=== PATIENT | female | born 1945 | race Caucasian/White ===

== ENCOUNTER → 2016-07-21 | Outpatient (CLI) | payer MEDICARE ==
[2016-07-21 16:33] LABS: Blood Urea Nitrogen 10 mg/dL (7-17); Non-African American GFR(MDRD) 58 (>60 ml/min/1.73 sqM)
--- NOTE | 2016-07-21 21:43 | CT ---
EXAMINATION TYPE: CT angio thoracic/abd aorta DATE OF EXAM: 07/21/2016 COMPARISON: 01/26/2015 HISTORY: Thoracic and abdominal aneurysm follow up. CT DLP: 1226.2 mGycm. Automated Exposure Control for Dose Reduction was Utilized. CONTRAST: CT scan of the thorax, abdomen and pelvis is performed with IV Contrast, patient injected with 80 mL of Visipaque 320. FINDINGS: There is apical scarring present bilaterally. There is emphysematous change throughout both lungs. Th ere is no significant axillary, internal mammary or hilar adenopathy. There is no pleural or pericard ial fluid. The heart is mildly enlarged. The ascending aorta is unremarkable. The proximal descending thoracic aorta is normal in caliber. The re is no evidence of dissection. There is a 4.3 cm area dilatation in the distal descending thoracic aorta. The remainder of the suprarenal abdominal aorta is unremarkable. There is an infrarenal abdominal aortic aneurysm with a maximal transverse dimension of 3.8 cm. This extends to but does not involve the iliac vessels. The gallbladder has been removed. Hypodensity within the left lobe of the liver measures less than 1 cm and too small to characterize. Spleen are normal. Both adrenal glands are normal. Both kidneys demonstrate function and are morphologically normal. The pancreas appears unremarkable. Bowel gas pattern nonspecific. Diverticulosis of the colon seen. 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 Findings s table. The bladder is not distended but is otherwise normal. Uterus and ovaries are not visualized. No free fluid and no free air is seen. Multilevel degenerative disc disease noted. Coronary artery calcification seen. Cardiomegaly is stabl e. IMPRESSION: 1. Stable descending thoracic aortic aneurysm measuring approximately 4.3 cm in greatest dimension. 2. Stable infrarenal abdominal aortic aneurysm extending to the aortic bifurcation measuring a tricia l dimension of 3.7 cm. 3. There is a 1 cm pleural-based nodule which is increased in size from the previous exam where it me asured 7 mm. Noted within the right upper lobe. Correlate clinically. Emphysematous change.
== END | disposition home or self-care (01) ==
LOC: RADCTMAIN 15:56
PROVIDERS: ATTEND Family Medicine
DX: I71.2 Thoracic aortic aneurysm, without rupture (principal); I71.4 Abdominal aortic aneurysm, without rupture; R91.1 Solitary pulmonary nodule; J43.9 Emphysema, unspecified
CPT/HCPCS: 82565; 84520; 75635; 71275; 36415; Q9967

== ENCOUNTER → 2016-10-01 | Outpatient (CLI) | payer MEDICARE ==
--- NOTE | 2016-10-02 12:25 | PE ---
EXAMINATION TYPE: PET CT fusion skull to thigh DATE OF EXAM: 10/01/2016 COMPARISON: CTA thorax and abdomen 07/21/2016 Prior PET/CT: None HISTORY: Solitary pulmonary nodule TECHNIQUE: Following the intravenous administration of 13.38 mCi of F-18 FDG, whole body images are performed from the skull base to the midthigh. Images are reviewed on the computer in the coronal, a xial, and sagittal planes. Reconstructed rotating images are created on independent workstation and reviewed on the computer. A localization and attenuation correction CT is performed in conjunction with the PET scan. DLP: 460.87 mGycm SCAN: Initial Blood glucose: 98 mg/dL Average Mediastinum SUV: 1.3 Average Liver SUV: 2.7 FINDINGS: NECK: No abnormal uptake THORAX: No abnormal uptake. The area of increased thickening along the posterior lateral right upper pleural margin from July 2016 has normal radiotracer uptake measuring 0.7 SUV value. PET image 81. ABDOMEN: No abnormal uptake PELVIS: No abnormal uptake OSSEOUS STRUCTURES: No abnormal uptake LOCALIZATION CT: The ascending thoracic aorta at the level of main pulmonary artery is 4.0 cm. The ma in pulmonary artery the bifurcation is 3.0 cm. There is mild fusiform prominence of the descending th oracic aorta. Vascular calcification is within the aorta. There is a mild prominence of the aorta wit h the AP diameter measuring 4.1 cm. This is somewhat larger than the previous measurement. Evaluation for enlarging aneurysm of the abdominal aorta is recommended. COMPARISON: The abdominal aortic aneurysm currently measures 4.1 cm which is enlarged from the previo us measurement of 07/21/2016 IMPRESSION: 1. No suspicious radiotracer accumulation within the enlarging right lung pleural nodule. Monitoring with sequential CT chest is recommended. 2. Enlarging abdominal aortic aneurysm currently measuring 4.1 cm compared to 3.7 cm previously. Eval uation for enlarging abdominal aortic aneurysm is recommended.
== END | disposition home or self-care (01) ==
LOC: RADPETMAIN 13:53
PROVIDERS: ATTEND Internal Medicine Critical Care Medicine
DX: I71.4 Abdominal aortic aneurysm, without rupture (principal); R91.1 Solitary pulmonary nodule
CPT/HCPCS: 78815; A9552

== ENCOUNTER 2016-10-03 15:31 | Emergency (ER) | payer MEDICARE ==
[2016-10-03 15:46] VITALS: BP 140/71; PULSE 72; RESP 18; TEMP 98.3
--- NOTE | 2016-10-03 16:22 | ED ---
General Adult HPI - General Chief complaint: Extremity Injury, Lower Stated complaint: Knee Pain Time Seen by Provider: 10/03/16 15:38 Source: patient, RN notes reviewed Mode of arrival: wheelchair Limitations: no limitations - History of Present Illness Initial comments: 71-year-old female presents to the emergency department with a chief complaint of right knee pain. Patient states that it does not to the results. Patient states she denies any injury that it's been swelling on and off since then. Patient states it hurts along the front of the knee. Patient states she went to her doctor's is not doing much for her so she thought she was here. Patient states she has any ambulate stiffness time we'll get better and was pending when she does that day. Patient denies any history of knee problems in the past patient denies any other concerns or complaints. Patient denies any recent fever, chills, shortness of breath, chest pain, back pain, abdominal pain, nausea vomiting, numbness or tingling, dysuria or hematuria, constipation or diarrhea, headaches or visual changes, or any other current symptoms. - Related Data Home Medications Medication Instructions Recorded Confirmed Aspirin [Adult Low Dose Aspirin EC] 81 mg PO QAM 04/22/15 04/22/15 Losartan Potassium 100 mg PO QAM 04/22/15 04/22/15 Multivitamins, Thera [Multivitamin] 1 tab PO QAM 04/22/15 04/22/15 Simvastatin [Zocor] 20 mg PO HS 04/22/15 04/22/15 amLODIPine [Norvasc] 5 mg PO HS 04/22/15 04/22/15 Allergies Allergy/AdvReac Type Severity Reaction Status Date / Time enalapril maleate Allergy facial Verified 10/03/16 15:39 [From Vasotec] edema enalaprilat dihydrate Allergy facial Verified 10/03/16 15:39 [From Vasotec] edema Review of Systems ROS Statement: Those systems with pertinent positive or pertinent negative responses have been documented in the HPI. ROS Other: All systems not noted in ROS Statement are negative. Past Medical History Past Medical History: Hyperlipidemia, Hypertension Additional Past Medical History / Comment(s): back pain, aaa, kidney disease History of Any Multi-Drug Resistant Organisms: None Reported Past Surgical History: Appendectomy, Cholecystectomy, Hysterectomy Past Psychological History: No Psychological Hx Reported Smoking Status: Current every day smoker Past Alcohol Use History: Daily Past Drug Use History: None Reported General Exam - General Exam Comments Initial Comments: General: The patient is awake and alert, in no distress, and does not appear acutely ill. Neck: The neck is supple, there is no tenderness. Cardiovascular: There is a regular rate and rhythm. No murmur, rub or gallop is appreciated. Respiratory: Lungs are clear to auscultation, respirations are non-labored, breath sounds are equal. No wheezes, stridor, rales, or rhonchi. Musculoskeletal:the patient Is a regular strain. Full range of motion of the right knee. Some anterior swelling noted. No tenderness of the right hip or right ankle. Neurological: CN II-XII intact, There are no obvious motor or sensory deficits. Coordination appears grossly intact. Speech is normal. Skin: Skin is warm and dry and no rashes or lesions are noted. Psychiatric: Normal mood and affect. Limitations: no limitations Course Vital Signs 10/03/16 15:39 Temperature 98.3 F Pulse Rate 72 Respiratory 18 Rate Blood Pressure 140/71 O2 Sat by Pulse 99 Oximetry Procedures - Orthopedic Splinting/Casting Injury #1 Side: right Lower Extremity Injury Location: knee Lower Extremity Immobilizer: Ludwig wrap Medical Decision Making - Medical Decision Making 71-year-old female presents for right knee sprain. This and we discussed care of the knee. We discussed return parameters discussed follow-up. We discussed all the patient's questions. She stated that she understood and she is given plan. All questions have been answered. She will be discharged at this time. - Radiology Data Radiology results: report reviewed, image reviewed Disposition Clinical Impression: Right knee sprain, Effusion, right knee Disposition: HOME SELF-CARE Condition: Stable Instructions: Knee Sprain (ED) Additional Instructions: Please use medication as discussed. Please follow up with family doctor if symptoms have not improved over the next two days. Please return to the emergency room if your symptoms increase or worsen or for any other concerns. Rest the area. Ice the area 20 min on 20 min off 4x a day. Compress the area with either the LUDWIG bandage or wearing the splint. Elevate the area above the heart whenever possible. Referrals: Alverto Chinchilla MD [Primary Care Provider] - 1-2 days Mp Daniels MD [STAFF PHYSICIAN] - 1-2 days Time of Disposition: 16:36
--- NOTE | 2016-10-03 16:35 | XR ---
EXAMINATION TYPE: XR knee complete RT DATE OF EXAM: 10/03/2016 COMPARISON: NONE HISTORY: Pain TECHNIQUE: Three-view right knee supplemented with a opposite lateral view FINDINGS: Joint spaces are preserved. No joint effusion is evident. Anterior superior patellar spur i s present. IMPRESSION: 1. No acute osseous abnormality. 2. Follow-up study can be performed 7-10 days from acute trauma for continued pain.
== END 2016-10-03 16:42 | disposition home or self-care (01) ==
LOC: EC 15:31
DX: S83.91XA Sprain of unspecified site of right knee, initial encounter (principal); M25.461 Effusion, right knee; E78.5 Hyperlipidemia, unspecified; I10 Essential (primary) hypertension; F17.200 Nicotine dependence, unspecified, uncomplicated; Z79.82 Long term (current) use of aspirin; Z79.899 Other long term (current) drug therapy; Z88.8 Allergy status to other drugs, medicaments and biological substances; Z87.39 Personal history of other diseases of the musculoskeletal system and connective tissue; X58.XXXA Exposure to other specified factors, initial encounter
CPT/HCPCS: 99283

== ENCOUNTER → 2017-04-04 | Outpatient (CLI) | payer MEDICARE ==
[2017-04-04 14:45] LABS: Blood Urea Nitrogen 13 mg/dL (7-17)
--- NOTE | 2017-04-04 15:59 | CT ---
EXAMINATION TYPE: CT chest w con DATE OF EXAM: 04/04/2017 COMPARISON: PET CT 10/01/2016, CT chest 07/21/2016, and CT chest 10/21/2013 HISTORY: 71-year-old female Solitary pulmonary nodule TECHNIQUE: Contiguous axial scanning of the chest after the administration of 80 mL of Visipaque 320. Coronal/sagittal reconstructions performed. CT DLP: 315.90mGycm. Automatic exposure control utilized for a dose reduction. FINDINGS: The heart is upper limits of normal in size. No pericardial effusion. Coronary vessel calcifications are present in remarkable for coronary artery disease. Aorta normal caliber with mild atherosclerotic arch calcifications. There is a direct takeoff of the left vertebral artery directly from the aortic arch. No thoracic lymphadenopathy by CT size criteria. There is fusiform dilatation of the distal thoracic aorta for caliber 3.8 cm, relatively stable obi red to 2013. Partially visualized AAA measuring at least 3.8 cm along the visualized portions. Double cysts anteri or left liver lobe measuring up to 1.2 cm redemonstrated. Evaluation of the lungs shows biapical pleural-parenchymal scarring, mild emphysematous change, and s ome strandy left basilar atelectasis. No consolidation or pleural effusion. There is a 1.1 cm groundglass subpleural pulmonary nodule lateral right mid lung axial image 25. This appears relatively stable as compared to 07/21/2016 but is larger with more soft tissue component as compared to 10/21/2013. Bones: Endplate spondylosis lower thoracic spine. No osseous destructive process. IMPRESSION: 1. Groundglass subpleural pulmonary nodule peripheral right midlung relatively stable from 07/21/2016 but larger with more soft tissue component as compared to 10/21/2013. As this could represent an area of adenomatous hyperplasia, annual surveillance is recommended. 2. COPD with mild emphysema. 3. Fusiform aneurysm lower descending thoracic aorta (3.8 cm) and partially visualized AAA which was more fully visualized on 10/01/2016.
== END | disposition home or self-care (01) ==
LOC: RADCTMAIN 13:58
PROVIDERS: ATTEND Internal Medicine Critical Care Medicine
DX: J43.9 Emphysema, unspecified (principal); R91.1 Solitary pulmonary nodule; I71.2 Thoracic aortic aneurysm, without rupture
CPT/HCPCS: 82565; 84520; 71260; Q9967

== ENCOUNTER → 2018-04-23 | Outpatient (CLI) | payer MEDICARE ==
[2018-04-23 16:26] LABS: HCT 36.9 % (34.0-46.0); HGB 12.2 gm/dL (11.4-16.0); MCH 29.1 pg (25.0-35.0); MCHC 33.1 g/dL (31.0-37.0); MCV 87.9 fL (80.0-100.0); Mean Platelet Volume 8.1; Platelet Count 253 k/uL (150-450); RDW 13.8 % (11.5-15.5); WBC 6.2 k/uL (3.8-10.6)
[2018-04-23 16:37] LABS: Prothrombin Time 10.3 sec (9.0-12.0)
[2018-04-24 02:27] LABS: Albumin 4.4 g/dL (3.80-4.90); Anion Gap 7.3 mmol/L (4.00-12.00); Calcium 9.1 mg/dL (8.7-10.3); Carbon Dioxide 25.7 mmol/L (21.6-31.8); Globulin 2.2 g/dL (1.6-3.3); Total Bilirubin 0.4 mg/dL (0.3-1.2); Total Protein 6.6 g/dL (6.2-8.2)
== END ==
LOC: LABWHC1 15:51
PROVIDERS: ATTEND Midwife
DX: I10 Essential (primary) hypertension (principal); I71.2 Thoracic aortic aneurysm, without rupture; I71.4 Abdominal aortic aneurysm, without rupture; Z79.899 Other long term (current) drug therapy
CPT/HCPCS: 36415; 80053; 85027; 85610

== ENCOUNTER → 2018-04-23 | Outpatient (CLI) | payer MEDICARE ==
--- NOTE | 2018-04-24 04:26 | CT ---
EXAMINATION TYPE: CT chest w con DATE OF EXAM: 04/23/2018 COMPARISON: 04/04/2017 and 07/21/2016 HISTORY: 72-year-old female Pulmonary nodule. TECHNIQUE: Contiguous axial scanning of the chest after the administration of 80ml mL of Isovue 300. Coronal/sagittal reconstructions performed. CT DLP: 365.8mGycm. Automatic exposure control utilized for a dose reduction. FINDINGS: Heart upper limits of normal in size with small pericardial effusion measuring 8 mm. Coronary vessel calcifications are present in remarkable for coronary artery disease. Mild atherosclerotic arch calcifications with very direct takeoff of the left vertebral artery direct ly from the aortic arch and redemonstrated fusiform aneurysm distal thoracic aorta at 4.3 x 4.2 cm (m easured on coronal and sagittal, respectively) versus 4.2 x 3.9 cm on 07/21/2016. Partially visualized AAA measuring at least 4.1 cm versus partially visualized and 3.8 cm on 8. Appropriate follow-up recommended. Scattered cysts within the liver. Mild centrilobular emphysema with biapical pleural parenchymal scarring. Redemonstrated peripheral ri ght upper lobe pulmonary nodule measuring 1.1 x 0.7 cm versus 1.1 x 0.5 cm on 04/04/2017. This is note d to have increased in size from the patient's 2014 study. It shows relatively indolent behavior and is partially groundglass when correlated on the coronal view. Some strandy atelectasis or scarring at the inferior lingula. No consolidation or pleural effusion. Bones: Moderate degenerative disc disease mid to lower thoracic spine. IMPRESSION: 1. Right upper lobe subpleural pulmonary nodule currently at 11 x 7 mm versus 11 x 5 mm on 04/04/2017. Relatively indolent growth pattern. Given the noted increase in size from 2014, continued annual tonie veillance recommended. 2. COPD. 3. Patient's lower descending thoracic aortic aneurysm shows a few millimeter increase from 2017 (cur rently 4.3 x 4.2 cm versus 4.2 x 3.9 cm in 2017). 4. Patient's known AAA is only partially visualized, measuring at least 4.1 cm versus at least 3.8 cm on 04/04/2017. Appropriate follow-up recommended.
== END | disposition home or self-care (01) ==
LOC: RADCTMAIN 16:31
PROVIDERS: ATTEND Internal Medicine Critical Care Medicine
DX: I71.6 Thoracoabdominal aortic aneurysm, without rupture (principal); J44.9 Chronic obstructive pulmonary disease, unspecified; R91.1 Solitary pulmonary nodule
CPT/HCPCS: 82565; 84520; 71260; 36415; Q9967

== ENCOUNTER 2018-08-21 04:16 | Emergency (ER) | payer MEDICARE ==
[2018-08-21 04:28] VITALS: BP 161/96; PULSE 89; RESP 16; TEMP 97.5
--- NOTE | 2018-08-21 04:29 | ED ---
Allergic Reaction HPI - General Chief complaint: Allergic Reaction Stated complaint: possible allergic reaction Time Seen by Provider: 08/21/18 04:29 Source: patient Mode of arrival: ambulatory Limitations: no limitations - History of Present Illness Initial Comments: Le is a 72-year-old female who presents to the emergency department today for evaluation of a possible ALLERGIC reaction. Patient was prescribed Valium and amoxicillin for an oral surgery she is to have today. Patient was to take the Valium prior to surgery and to start the amoxicillin after the surgery however she accidentally took both last night. Patient reports that she then developed hives on her back and felt like she had redness and flushing of her face. Patient did not have any shortness of breath, tightness or throat, nausea or vomiting. She had no known history of ALLERGIES to antibiotics. MD Complaint: hives -: hour(s) Exposure: medication Symptoms: rash, itching Severity: mild Treatment Prior to Arrival: none Previous Allergy History: none - Related Data Home Medications Medication Instructions Recorded Confirmed Aspirin [Adult Low Dose Aspirin EC] 81 mg PO QAM 04/22/15 04/22/15 Losartan Potassium 100 mg PO QAM 04/22/15 04/22/15 Multivitamins, Thera [Multivitamin] 1 tab PO QAM 04/22/15 04/22/15 Simvastatin [Zocor] 20 mg PO HS 04/22/15 04/22/15 amLODIPine [Norvasc] 5 mg PO HS 04/22/15 04/22/15 Allergies Allergy/AdvReac Type Severity Reaction Status Date / Time enalapril maleate Allergy facial Verified 10/03/16 15:39 [From Vasotec] edema enalaprilat dihydrate Allergy facial Verified 10/03/16 15:39 [From Vasotec] edema Review of Systems ROS Statement: Those systems with pertinent positive or pertinent negative responses have been documented in the HPI. ROS Other: All systems not noted in ROS Statement are negative. Past Medical History Past Medical History: Hyperlipidemia, Hypertension Additional Past Medical History / Comment(s): back pain, aaa, History of Any Multi-Drug Resistant Organisms: None Reported Past Surgical History: Appendectomy, Cholecystectomy, Hysterectomy Past Psychological History: No Psychological Hx Reported Smoking Status: Current every day smoker Past Alcohol Use History: Daily Past Drug Use History: None Reported General Exam - General Exam Comments Initial Comments: Physical Exam GENERAL: Patient is well-developed and well-nourished. Patient is nontoxic and well- hydrated and is in no distress. HENT: Normocephalic, Atraumatic. Normal mucous membranes, no angioedema of the lips, uvula EYES: PERRL, EOMI PULMONARY: Unlabored respirations. No audible rales rhonchi or wheezing was noted. CARDIOVASCULAR: There is a regular rate and rhythm without any murmurs gallops or rubs. ABDOMEN: Soft and nontender with normal bowel sounds. SKIN: Hives are noted on the patient's back and chest, no angioedema of the lips : Deferred NEUROLOGIC: Patient is alert and oriented x3. Moving all extremities spontaneously MUSCULOSKELETAL: Normal extremities with adequate strength and full range of motion. No lower extremity swelling or edema. No calf tenderness. PSYCHIATRIC: Normal psychiatric evaluation Limitations: no limitations Course Vital Signs 08/21/18 04:21 Temperature 97.5 F L Pulse Rate 89 Respiratory 16 Rate Blood Pressure 161/96 O2 Sat by Pulse 98 Oximetry Medical Decision Making - Medical Decision Making The patient was seen and evaluated, history is obtained from the patient and signed patient appears to be having an ALLERGIC reaction, likely related to the amoxicillin. Patient was not supposed to start taking amoxicillin until after her procedure today. I advised the patient we'll treat her ALLERGIC reaction. Jayant with [facility], she should be seen by her oral surgeon today and discussed with him that she is ALLERGIC to amoxicillin needs an alternative medication. Disposition Clinical Impression: Adverse reaction to drug Disposition: HOME SELF-CARE Condition: Stable Instructions (If sedation given, give patient instructions): Anaphylaxis (ED) Is patient prescribed a controlled substance at d/c from ED?: No Referrals: Alverto Chinchilla MD [Primary Care Provider] - 1-2 days
[2018-08-21] MEDS ORDERED: diphenhydrAMINE 25 MG CAP PO STA (04:36)
== END 2018-08-21 05:12 | disposition home or self-care (01) ==
LOC: EC 04:16
DX: L50.0 Allergic urticaria (principal); T42.4X5A Adverse effect of benzodiazepines, initial encounter; T36.0X5A Adverse effect of penicillins, initial encounter; I10 Essential (primary) hypertension; E78.5 Hyperlipidemia, unspecified; F17.200 Nicotine dependence, unspecified, uncomplicated; Z79.82 Long term (current) use of aspirin; Z79.899 Other long term (current) drug therapy; Z88.8 Allergy status to other drugs, medicaments and biological substances
CPT/HCPCS: 99282

== ENCOUNTER 2018-08-24 19:47 | Emergency (ER) | payer MEDICARE ==
[2018-08-24 21:26] LABS: Basophils % (A) 0 %; Eosinophils # (A) 0.4 k/uL (0-0.7); Eosinophils % (A) 7 %; HCT 36.7 % (34.0-46.0); HGB 12.2 gm/dL (11.4-16.0); Lymphocytes # (A) 1.4 k/uL (1.0-4.8); Lymphocytes % (A) 25 %; MCH 29.1 pg (25.0-35.0); MCHC 33.4 g/dL (31.0-37.0); MCV 87.3 fL (80.0-100.0); Mean Platelet Volume 7.1; Monocytes # (A) 0.4 k/uL (0-1.0); Monocytes % (A) 7 %; Neutrophils # (A) 3.2 k/uL (1.3-7.7); Neutrophils % (A) 57 %; Platelet Count 223 k/uL (150-450); RDW 13.6 % (11.5-15.5); WBC 5.6 k/uL (3.8-10.6)
--- NOTE | 2018-08-24 21:26 | XR ---
EXAMINATION TYPE: XR chest 1V portable DATE OF EXAM: 08/24/2018 COMPARISON: March 09, 2013 HISTORY: Chest pain TECHNIQUE: Single frontal view of the chest is obtained. FINDINGS: Heart appears slightly enlarged. There is no heart failure. There are chest leads. Costoph renic angles are clear. There is a faint 1 cm density over the right upper lobe. There is no pleural effusion. IMPRESSION: There is possible new right upper lobe nodule compared to old exam. Recommend PA and lat eral views. Mild cardiomegaly.
[2018-08-24 21:39] LABS: Calcium 9.3 mg/dL (8.4-10.2); Magnesium 2.2 mg/dL (1.6-2.3); Potassium 3.9 mmol/L (3.5-5.1); Total Bilirubin 0.4 mg/dL (0.2-1.3); Total Protein 6.9 g/dL (6.3-8.2)
[2018-08-24 22:17] LABS: INR 0.9 (<1.2); Prothrombin Time 9.7 sec (9.0-12.0)
[2018-08-24 22:26] LABS: D-Dimer 7.7 mg/L FEU (<0.60)
--- NOTE | 2018-08-25 00:20 | ED ---
Chest Pain HPI - General Chief Complaint: Chest Pain Stated Complaint: Chest pain Time Seen by Provider: 08/24/18 21:01 Source: patient Mode of arrival: ambulatory Limitations: no limitations - History of Present Illness Initial Comments: This patient is a 72-year-old woman who presents to be evaluated for an episode of chest pain that came on this afternoon around 3 PM while she was using her computer. The patient describes a sharp substernal pain, moderate in intensity, lasting about 1 minute and resolving spontaneously. She had no associated sy mptoms. She states that she feels well now. She had been discussing the episode with some friends and they felt that she deftly should have evaluation of the emergency department. MD Complaint: chest pain -: hour(s) Onset: during rest Pain Location: substernal Pain Radiation: none Severity: moderate Quality: sharp Consistency: now resolved Improves With: nothing Worsens With: nothing Treatments Prior to Arrival: none - Related Data Home Medications Medication Instructions Recorded Confirmed Losartan Potassium 100 mg PO QAM 04/22/15 08/24/18 Multivitamins, Thera [Multivitamin] 1 tab PO QAM 04/22/15 08/24/18 Simvastatin [Zocor] 20 mg PO HS 04/22/15 08/24/18 amLODIPine [Norvasc] 5 mg PO HS 04/22/15 08/24/18 Clindamycin HCl [Cleocin] 300 mg PO Q8HR 08/24/18 08/24/18 Ibuprofen [Motrin] 800 mg PO TID 08/24/18 08/24/18 diphenhydrAMINE [Benadryl] 25 mg PO DAILY PRN 08/24/18 08/24/18 Allergies Allergy/AdvReac Type Severity Reaction Status Date / Time enalapril maleate Allergy facial Verified 08/24/18 21:53 [From Vasotec] edema enalaprilat dihydrate Allergy facial Verified 08/24/18 21:53 [From Vasotec] edema Review of Systems ROS Statement: Those systems with pertinent positive or pertinent negative responses have been documented in the HPI. ROS Other: All systems not noted in ROS Statement are negative. Constitutional: Denies: fever, chills Respiratory: Denies: cough, dyspnea Cardiovascular: Reports: as per HPI, chest pain. Denies: palpitations, orthopnea, syncope Gastrointestinal: Denies: abdominal pain, nausea, vomiting Genitourinary: Denies: dysuria, hematuria Musculoskeletal: Denies: back pain Skin: Denies: rash Neurological: Denies: headache, weakness, numbness EKG Findings - EKG Results: EKG: interpreted by KANDICE HOLCOMB, sinus rhythm (Rate 93 bpm), normal axis, normal QRS, normal ST/T, no acute changes - [place], Pacemaker, Normal: Normal tracing: normal tracing Past Medical History Past Medical History: Hyperlipidemia, Hypertension Additional Past Medical History / Comment(s): back pain, aaa, History of Any Multi-Drug Resistant Organisms: None Reported Past Surgical History: Appendectomy, Cholecystectomy, Hysterectomy Past Psychological History: No Psychological Hx Reported Smoking Status: Current every day smoker Past Alcohol Use History: Daily Past Drug Use History: None Reported General Exam Limitations: no limitations General appearance: alert, in no apparent distress Head exam: Present: atraumatic, normocephalic Eye exam: Present: normal appearance. Absent: scleral icterus, conjunctival injection ENT exam: Present: normal oropharynx Neck exam: Present: normal inspection Respiratory exam: Present: normal lung sounds bilaterally. Absent: respiratory distress, wheezes, rales, rhonchi, stridor, chest wall tenderness Cardiovascular Exam: Present: regular rate, normal rhythm, normal heart sounds. Absent: systolic murmur, diastolic murmur, rubs, gallop GI/Abdominal exam: Present: soft. Absent: distended, tenderness, guarding, rebound, rigid, mass Extremities exam: Present: normal inspection, normal capillary refill. Absent: pedal edema, calf tenderness Back exam: Present: normal inspection. Absent: CVA tenderness (R), CVA tenderness (L) Neurological exam: Present: alert Skin exam: Present: warm, dry, intact, normal color. Absent: rash Course Vital Signs 08/24/18 08/24/18 08/24/18 19:52 20:50 21:00 Temperature 99 F Pulse Rate 99 85 82 Respiratory 19 29 H 21 Rate Blood Pressure 168/77 167/79 O2 Sat by Pulse 98 99 93 L Oximetry 08/24/18 08/24/18 08/25/18 22:00 22:30 00:25 Temperature 98.6 F Pulse Rate 79 81 78 Respiratory 20 11 L 16 Rate Blood Pressure 167/79 167/82 170/94 O2 Sat by Pulse 98 96 96 Oximetry Chest Pain MDM - MDM Shouldn't is 72-year-old woman with an episode of chest pain that came on and resolved around 3 PM. She has felt well since that time. The initial studies reveal presence of a lung nodule on her chest x-ray of the d-dimer is moderately elevated. I discussed having a computed tomography scan with contrast to further evaluate these findings. The patient states that she feels well now and wants to have this done as an outpatient. We discussed the risks and benefits of that plan. The patient does understand risk of a missed diagnosis, disability or . She states that she will follow-up to have this further evaluated. She'll return should she develop any symptoms. She does display evidence that she is capable of making this decision. Disposition Clinical Impression: Chest pain, Lung nodule, D-dimer, elevated Disposition: Left Against Medical Advice Condition: Undetermined Instructions (If sedation given, give patient instructions): Chest Pain (ED) Is patient prescribed a controlled substance at d/c from ED?: No Referrals: Alverto Chinchilla MD [Primary Care Provider] - 1-2 days
[2018-08-25 00:28] VITALS: BP 170/94; PULSE 78; RESP 16; TEMP 98.6
== END 2018-08-25 00:28 | disposition left against medical advice (07) ==
LOC: EC 19:47
DX: R07.2 Precordial pain (principal); R91.1 Solitary pulmonary nodule; R79.89 Other specified abnormal findings of blood chemistry; E78.5 Hyperlipidemia, unspecified; I10 Essential (primary) hypertension; F17.200 Nicotine dependence, unspecified, uncomplicated; Z79.1 Long term (current) use of non-steroidal anti-inflammatories (NSAID); Z79.899 Other long term (current) drug therapy; Z88.8 Allergy status to other drugs, medicaments and biological substances
CPT/HCPCS: 36415; 71045; 80053; 82150; 83690; 83735; 83880; 84484; 85025; 85379; 85610; 85730; 93005; 99285

== ENCOUNTER 2018-10-31 10:09 | Day surgery (SDC) | payer MEDICARE ==
[2018-10-30 09:10] VITALS: BMI 29.9
--- NOTE | 2018-10-31 10:01 | P.GSHP ---
History of Present Illness H&P Date: 10/31/18 CHIEF COMPLAINT: Colon screen HISTORY OF PRESENT ILLNESS: The patient is a 73-year-old female who presents for colon screen. Lower endoscopy was offered for further evaluation and management. PAST MEDICAL HISTORY: Please see list. PAST SURGICAL HISTORY: Please see list. MEDICATIONS: Please see list. ALLERGIES: Please see list. SOCIAL HISTORY: No illicit drug use FAMILY HISTORY: No reports of Crohn disease or ulcerative colitis. REVIEW OF ORGAN SYSTEMS: CONSTITUTIONAL: No reports of fevers or chills. PHYSICAL EXAM: VITAL SIGNS: Stable GENERAL: Well-developed pleasant in no acute distress. HEENT: No scleral icterus. Extraocular movements grossly intact. Moist buccal mucosa. NECK: Supple without lymphadenopathy. CHEST: Unlabored respirations. Equal bilateral excursions. CARDIOVASCULAR: Regular rate and rhythm. Distal 2+ pulses. ABDOMEN: Soft, nontender, nondistended. MUSCULOSKELETAL: No clubbing, cyanosis, or edema. ASSESSMENT: 1. Colon screen. PLAN: 1. Recommend proceeding with a lower endoscopy Past Medical History Past Medical History: Hyperlipidemia, Hypertension Additional Past Medical History / Comment(s): back pain, AAA History of Any Multi-Drug Resistant Organisms: None Reported Past Surgical History: Appendectomy, Cholecystectomy, Hysterectomy Additional Past Surgical History / Comment(s): COLONOSCOPY Past Anesthesia/Blood Transfusion Reactions: No Reported Reaction Smoking Status: Current every day smoker - Past Family History Mother Family Medical History: Cancer Medications and Allergies Home Medications Medication Instructions Recorded Confirmed Type Losartan Potassium 100 mg PO QAM 04/22/15 10/30/18 History Multivitamins, Thera [Multivitamin] 1 tab PO QAM 04/22/15 10/30/18 History Simvastatin [Zocor] 20 mg PO HS 04/22/15 10/30/18 History amLODIPine [Norvasc] 5 mg PO HS 04/22/15 10/30/18 History Ibuprofen [Motrin] 800 mg PO TID PRN 08/24/18 10/30/18 History diphenhydrAMINE [Benadryl] 25 mg PO DAILY PRN 08/24/18 10/30/18 History Allergies Allergy/AdvReac Type Severity Reaction Status Date / Time enalapril maleate Allergy facial Verified 10/30/18 09:00 [From Vasotec] edema enalaprilat dihydrate Allergy facial Verified 10/30/18 09:00 [From Vasotec] edema
[~2018-10-31 10:09] MED LIST: LACTATED RINGERS 1,000 ML IV SCH; LIDOCAINE 1% 20 ML VIAL (10MG/ML) FOR IV START INTRADERMA PRN
[2018-10-31 11:14] VITALS: RESP 16; TEMP 97.9
[2018-10-31] MEDS ORDERED: PROPOFOL 10 MG/ML 20 ML VIAL IV ONE (11:45)
--- NOTE | 2018-10-31 12:31 | P.PCN ---
Date of Procedure: 10/31/18 Description of Procedure: PREOPERATIVE DIAGNOSIS: History of high of risk colon polyps Colonoscopy screening POSTOPERATIVE DIAGNOSIS: History of high of risk colon polyps Colonoscopy screening Multiple tubular adenomas throughout the colon Severe sigmoid diverticulosis OPERATION: Colonoscopy to the ileocecal valve and appendiceal orifice. Colonoscopy with multiple hot snare polypectomies SURGEON: Kaylee Carranza MD. ANESTHESIA: MAC. INDICATIONS: The patient is a 73-year-old female who presents for colonoscopy screening. Last colonoscopy 3 years ago. Benefits and risks were described and informed consent was obtained. DESCRIPTION OF PROCEDURE: The patient had undergone Suprep. She had been brought into the operating room and laid in the left lateral decubitus position. After adequate intravenous sedation, the rectum was examined with 2% lidocaine jelly. No external hemorrhoids were encountered. The rectal tone was within normal limits. No lesions were palpated in the rectal vault. An Olympus colonoscope was advanced until the ileocecal valve and appendiceal orifice were clearly viewed. The prep was good however limited by moderate gaseous bubbles and extremely highly redundant sigmoid colon. The scope was removed. Severe scattered diverticulosis was encountered. Colonic polyps were found and snare polypectomy. No evidence of focal colitis was found. Retroflexion of the scope demonstrated grade 1 internal hemorrhoids without active bleeding or inflammation. The colon was desufflated. The patient had tolerated the procedure well. Withdrawal time was over 6 minutes. FINDINGS: Aronchick preparation quality scale 2 (1-5) Internal hemorrhoids, grade 1 No external hemorrhoids Severe highly redundant sigmoid colon Severe sigmoid diverticulosis with pandiverticulosis No arteriovenous malformations Removal of 2 polyps: - Snare polypectomy mid transverse colon, 5 mm tubulovillous adenoma polyp. - Snare polypectomy distal transverse colon, 8 mm flat villous adenoma polyp. No focal colitis. RECOMMENDATIONS: Given severity of tubular adenomas, recommend repeat colonoscopy 2 years, 2021. Plan - Discharge Summary Discharge Rx Participant: Yes New Discharge Prescriptions: No Action Multivitamins, Thera [Multivitamin] 1 tab PO QAM Simvastatin [Zocor] 20 mg PO HS Losartan Potassium 100 mg PO QAM amLODIPine [Norvasc] 5 mg PO HS diphenhydrAMINE [Benadryl] 25 mg PO DAILY PRN PRN Reason: HIVES Ibuprofen [Motrin] 800 mg PO TID PRN PRN Reason: Pain Discharge Medication List Losartan Potassium 100 mg PO QAM 04/22/15 [History] Multivitamins, Thera [Multivitamin] 1 tab PO QAM 04/22/15 [History] Simvastatin [Zocor] 20 mg PO HS 04/22/15 [History] amLODIPine [Norvasc] 5 mg PO HS 04/22/15 [History] Ibuprofen [Motrin] 800 mg PO TID PRN 08/24/18 [History] diphenhydrAMINE [Benadryl] 25 mg PO DAILY PRN 08/24/18 [History] Follow up Appointment(s)/Referral(s): Kaylee Carranza MD [STAFF PHYSICIAN] - As Needed Patient Instructions/Handouts: Colorectal Polyps (DC) Activity/Diet/Wound Care/Special Instructions: Repeat colonoscopy 2 years, 2020 Discharge Disposition: HOME SELF-CARE
[2018-10-31 13:11] VITALS: BP 133/57; PULSE 66
== END 2018-10-31 13:33 | disposition home or self-care (01) ==
LOC: ORWHC2ENDO 10:09
PROVIDERS: ATTEND Surgery Plastic and Reconstructive Surgery
DX: Z12.11 Encounter for screening for malignant neoplasm of colon (principal); K63.5 Polyp of colon; K57.30 Diverticulosis of large intestine without perforation or abscess without bleeding; K64.0 First degree hemorrhoids; Z86.010 Personal history of colon polyps; Q43.8 Other specified congenital malformations of intestine; K57.92 Diverticulitis of intestine, part unspecified, without perforation or abscess without bleeding; I10 Essential (primary) hypertension; E78.5 Hyperlipidemia, unspecified; I71.4 Abdominal aortic aneurysm, without rupture; Z90.49 Acquired absence of other specified parts of digestive tract; Z90.710 Acquired absence of both cervix and uterus; F17.200 Nicotine dependence, unspecified, uncomplicated; Z79.899 Other long term (current) drug therapy; Z88.8 Allergy status to other drugs, medicaments and biological substances
CPT/HCPCS: 45385; 88305; J2704; 45380

== ENCOUNTER → 2019-04-05 | Outpatient (CLI) | payer MEDICARE ==
--- NOTE | 2019-04-07 21:35 | CT ---
EXAMINATION TYPE: CT chest w con DATE OF EXAM: 04/05/2019 COMPARISON: 04/23/2018 and 04/04/2017 HISTORY: 73-year-old female Follow up for lung nodule. TECHNIQUE: Contiguous axial scanning of the chest after the administration of 80ml mL of Isovue 300. Coronal/sagittal reconstructions performed. CT DLP: 319.5mGycm. Automatic exposure control utilized for a dose reduction. FINDINGS: Heart limits of normal in size with trace pericardial fluid. Scattered two-vessel coronary artery kaiden cifications are present. Ectatic ascending aorta 3.7 cm, unchanged. There are diverticula off of the left vertebral artery dir ectly from the aortic arch with scattered mild atherosclerotic calcifications. Ectatic upper descendi ng thoracic aorta at 3.0 cm. There is a fusiform AAA of the lower descending thoracic aorta measuring 4.9 cm versus 4.8 cm and 04/23/2018. Additional partially visualized infrarenal AAA measuring up to at least 4.4 cm versus 4.3 cm, previou sly. Again, this is only partially visualized in its greatest diameter is unclear. No thoracic lymphadenopathy by CT size criteria. [id number] upper lung centrilobular emphysema. A 1.3 cm subpleural pulmonary nodule in the right upper lobe is stable to minimally larger at 1.3 x 0 .9 cm versus 1.2 x 0.8 cm on 04/23/2018 and 1.1 cm on 04/04/2017. Some strandy scattered areas of scarring or atelectasis are present. No consolidation or pleural effu cece. Mild biapical pleural parenchymal scarring. A couple benign cysts redemonstrated within the left liver lobe. Cholecystectomy clips. Bones: Moderate degenerative disc disease lower thoracic spine. IMPRESSION: 1. COPD with mild to moderate emphysema. 2. A 1.3 cm subpleural right upper lobe pulmonary nodule shows very indolent behavior currently measu ring 1.3 x 0.9 cm (versus 1.2 x 0.8 cm on 04/23/2018 and 1.1 cm on 04/04/2017). Continued surveillance can be performed. 3. Fusiform aneurysm lower descending thoracic aorta relatively stable at 4.9 cm versus 4.8 cm, previ ously. Partially visualized AAA measures at least 4.4 cm versus 4.3 cm, previously. Appropriate vascu lar surgery and imaging follow-up recommended.
== END | disposition home or self-care (01) ==
LOC: RADCTMAIN 13:31
PROVIDERS: ATTEND Internal Medicine Critical Care Medicine
DX: J43.2 Centrilobular emphysema (principal); R91.1 Solitary pulmonary nodule; I71.2 Thoracic aortic aneurysm, without rupture; I71.4 Abdominal aortic aneurysm, without rupture
CPT/HCPCS: 82565; 84520; 71260; 36415; Q9967

== ENCOUNTER → 2020-08-10 | Outpatient (CLI) | payer MEDICARE ==
--- NOTE | 2020-08-10 11:41 | US ---
EXAMINATION TYPE: US duplex aorta DATE OF EXAM: 08/10/2020 COMPARISON: CT 04/05/2019 CLINICAL HISTORY: I71.4 Abd Aneurysm w/o rupture,I71.2 Thoracic aorta EXAM MEASUREMENTS: Abdominal Aorta: Proximal: 2.9 x 3.7 cm Mid: 4.2 x 4.3 cm Distal: 5.2 x 5.4 cm Bifurcation: rt 1.6 cm lt, 1.7 cm Mid/ distal AAA. IMPRESSION: 1. The aorta is diffusely aneurysmal measuring about 3 cm in diameter. This is most prominent at the distal abdominal aorta measuring 5.2 x 5.4 cm. There is ectasia of the common iliac arteries, right m easuring 1.6 cm, and left measuring 1.7 cm, respectively. There is extensive atherosclerotic plaque a t the abdominal aorta. A CT angiogram could be considered clinically indicated. On prior exam is infr arenal abdominal aorta measures 3.[address] angiogram dated 07/21/2016. This has increased in size.
== END | disposition home or self-care (01) ==
LOC: RADUSWWP 10:51
PROVIDERS: ATTEND Family Medicine
DX: I71.4 Abdominal aortic aneurysm, without rupture (principal); I70.0 Atherosclerosis of aorta
CPT/HCPCS: 93979

== ENCOUNTER 2020-08-13 07:23 | Day surgery (SDC) | payer MEDICARE ==
[2020-08-11 13:52] VITALS: BMI 28.3
[~2020-08-13 07:23] MED LIST changes: +LIDOCAINE 1% (10MG/ML) FOR IV START INTRADERMA PRN; -LIDOCAINE 1% 20 ML VIAL (10MG/ML) FOR IV START INTRADERMA PRN
--- NOTE | 2020-08-13 07:45 | P.GSHP ---
History of Present Illness H&P Date: 08/13/20 CHIEF COMPLAINT: Colon screen HISTORY OF PRESENT ILLNESS: The patient is a 74-year-old female who presents for colon screen. Lower endoscopy was offered for further evaluation and management. PAST MEDICAL HISTORY: Please see list. PAST SURGICAL HISTORY: Please see list. MEDICATIONS: Please see list. ALLERGIES: Please see list. SOCIAL HISTORY: No illicit drug use FAMILY HISTORY: No reports of Crohn disease or ulcerative colitis. REVIEW OF ORGAN SYSTEMS: CONSTITUTIONAL: No reports of fevers or chills. PHYSICAL EXAM: VITAL SIGNS: Stable GENERAL: Well-developed pleasant in no acute distress. HEENT: No scleral icterus. Extraocular movements grossly intact. Moist buccal mucosa. NECK: Supple without lymphadenopathy. CHEST: Unlabored respirations. Equal bilateral excursions. CARDIOVASCULAR: Regular rate and rhythm. Distal 2+ pulses. ABDOMEN: Soft, nontender, nondistended. MUSCULOSKELETAL: No clubbing, cyanosis, or edema. ASSESSMENT: 1. Colon screen. PLAN: 1. Recommend proceeding with a lower endoscopy Past Medical History Past Medical History: Hyperlipidemia, Hypertension Additional Past Medical History / Comment(s): back pain, AAA History of Any Multi-Drug Resistant Organisms: None Reported Past Surgical History: Appendectomy, Cholecystectomy, Hysterectomy Additional Past Surgical History / Comment(s): COLONOSCOPY Past Anesthesia/Blood Transfusion Reactions: No Reported Reaction Smoking Status: Current every day smoker - Past Family History Mother Family Medical History: Cancer Medications and Allergies Home Medications Medication Instructions Recorded Confirmed Type Losartan Potassium 100 mg PO QAM 04/22/15 08/11/20 History Multivitamins, Thera [Multivitamin] 1 tab PO QAM 04/22/15 08/11/20 History Simvastatin [Zocor] 20 mg PO HS 04/22/15 08/11/20 History amLODIPine [Norvasc] 5 mg PO HS 04/22/15 08/11/20 History Acetaminophen-Codeine 300-30mg 1 tab PO Q8H PRN 08/11/20 08/11/20 History [Tylenol w/codeine #3] Allergies Allergy/AdvReac Type Severity Reaction Status Date / Time enalapril maleate Allergy facial Verified 08/11/20 13:45 [From Vasotec] edema enalaprilat dihydrate Allergy facial Verified 08/11/20 13:45 [From Vasotec] edema
[2020-08-13 07:50] VITALS: TEMP 98.5
[2020-08-13] MEDS ORDERED: LIDOCAINE 1% INJ 10MG/ML (20 ML MDV) ONE (08:12)
[2020-08-13] MEDS ORDERED: PROPOFOL 10 MG/ML 20 ML VIAL IV ONE (08:12)
[2020-08-13 08:46] VITALS: RESP 16
--- NOTE | 2020-08-13 08:54 | P.GSHP ---
History of Present Illness H&P Date: 08/13/20 PREOPERATIVE DIAGNOSIS: Personal history colon polyps Family history colon cancer Tobacco abuse disorder Colonoscopy screening. POSTOPERATIVE DIAGNOSIS: Personal history colon polyps Family history colon cancer Tobacco abuse disorder Colonoscopy screening. Pandiverticulosis with severe sigmoid diverticulosis OPERATION: Colonoscopy to the cecum, ileocecal valve SURGEON: Kaylee Carranza MD. ANESTHESIA: MAC. INDICATIONS: The patient is a 74-year-old female who presents for colonoscopy screening. Last colonoscopy over 5 years ago. Benefits and risks were described and informed consent was obtained. DESCRIPTION OF PROCEDURE: The patient had undergone Suprep. The patient had been brought into the operating room and laid in the left lateral decubitus position. After adequate intravenous sedation, the rectum was examined with 2% lidocaine jelly. External hemorrhoids were encountered. The rectal tone was within normal limits. No lesions were palpated in the rectal vault. An Olympus colonoscope was advanced until the cecum, ileocecal valve and appendiceal orifice were clearly viewed. The prep was good. Severe sigmoid diverticulosis with pandiverticulosis was encountered. No large colonic polyps were found. The sigmoid was highly redundant requiring abdominal wall pressure to advance the scope. No evidence of focal colitis was found. Retroflexion of the scope demonstrated grade 2 internal hemorrhoids without active bleeding or inflammation. The colon was desufflated. The patient had tolerated the procedure well. Withdrawal time was over 6 minutes. FINDINGS: Aronchick preparation quality scale 2 (1-5) Internal hemorrhoids, grade 2 External prolapsed hemorrhoids, grade 1 No arteriovenous malformations. No large adenomatous polyps. Highly redundant sigmoid colon Pandiverticulosis Severe sigmoid diverticulosis No focal colitis. RECOMMENDATIONS: Lower endoscopy in 3 years2023 Past Medical History Past Medical History: Hyperlipidemia, Hypertension Additional Past Medical History / Comment(s): back pain, AAA History of Any Multi-Drug Resistant Organisms: None Reported Past Surgical History: Appendectomy, Cholecystectomy, Hysterectomy Additional Past Surgical History / Comment(s): COLONOSCOPY Past Anesthesia/Blood Transfusion Reactions: No Reported Reaction Smoking Status: Current every day smoker - Past Family History Mother Family Medical History: Cancer Medications and Allergies Home Medications Medication Instructions Recorded Confirmed Type Losartan Potassium 100 mg PO QAM 04/22/15 08/13/20 History Multivitamins, Thera [Multivitamin 1 tab PO QAM 04/22/15 08/13/20 History (formulary)] Simvastatin [Zocor] 20 mg PO HS 04/22/15 08/13/20 History amLODIPine [Norvasc] 5 mg PO HS 04/22/15 08/13/20 History Acetaminophen-Codeine 300-30mg 1 tab PO Q8H PRN 08/11/20 08/13/20 History [Tylenol w/codeine #3] Allergies Allergy/AdvReac Type Severity Reaction Status Date / Time enalapril maleate Allergy facial Verified 08/13/20 07:50 [From Vasotec] edema enalaprilat dihydrate Allergy facial Verified 08/13/20 07:50 [From Vasotec] edema Surgical - Exam Vital Signs Temp Pulse Resp BP Pulse Ox 98.5 F 84 18 129/68 95 08/13/20 07:48 08/13/20 07:48 08/13/20 07:48 08/13/20 07:48 08/13/20 07:48
--- NOTE | 2020-08-13 08:55 | P.PCN ---
Date of Procedure: 08/13/20 Description of Procedure: PREOPERATIVE DIAGNOSIS: Personal history colon polyps Family history colon cancer Tobacco abuse disorder Colonoscopy screening. POSTOPERATIVE DIAGNOSIS: Personal history colon polyps Family history colon cancer Tobacco abuse disorder Colonoscopy screening. Pandiverticulosis with severe sigmoid diverticulosis OPERATION: Colonoscopy to the cecum, ileocecal valve SURGEON: Kaylee Carranza MD. ANESTHESIA: MAC. INDICATIONS: The patient is a 74-year-old female who presents for colonoscopy screening. Last colonoscopy over 5 years ago. Benefits and risks were described and informed consent was obtained. DESCRIPTION OF PROCEDURE: The patient had undergone Suprep. The patient had been brought into the operating room and laid in the left lateral decubitus position. After adequate intravenous sedation, the rectum was examined with 2% lidocaine jelly. External hemorrhoids were encountered. The rectal tone was within normal limits. No lesions were palpated in the rectal vault. An Olympus colonoscope was advanced until the cecum, ileocecal valve and appendiceal orifice were clearly viewed. The prep was good. Severe sigmoid diverticulosis with pandiverticulosis was encountered. No large colonic polyps were found. The sigmoid was highly redundant requiring abdominal wall pressure to advance the scope. No evidence of focal colitis was found. Retroflexion of the scope demonstrated grade 2 internal hemorrhoids without active bleeding or inflammation. The colon was desufflated. The patient had tolerated the procedure well. Withdrawal time was over 6 minutes. FINDINGS: Aronchick preparation quality scale 2 (1-5) Internal hemorrhoids, grade 2 External prolapsed hemorrhoids, grade 1 No arteriovenous malformations. No large adenomatous polyps. Highly redundant sigmoid colon Pandiverticulosis Severe sigmoid diverticulosis No focal colitis. RECOMMENDATIONS: Lower endoscopy in 3 years, 2023 Plan - Discharge Summary Discharge Rx Participant: No New Discharge Prescriptions: Continue Multivitamins, Thera [Multivitamin (formulary)] 1 tab PO QAM Simvastatin [Zocor] 20 mg PO HS Losartan Potassium 100 mg PO QAM amLODIPine [Norvasc] 5 mg PO HS Acetaminophen-Codeine 300-30mg [Tylenol w/codeine #3] 1 tab PO Q8H PRN PRN Reason: Pain Discharge Medication List Losartan Potassium 100 mg PO QAM 04/22/15 [History] Multivitamins, Thera [Multivitamin (formulary)] 1 tab PO QAM 04/22/15 [History] Simvastatin [Zocor] 20 mg PO HS 04/22/15 [History] amLODIPine [Norvasc] 5 mg PO HS 04/22/15 [History] Acetaminophen-Codeine 300-30mg [Tylenol w/codeine #3] 1 tab PO Q8H PRN 08/11/20 [History] Follow up Appointment(s)/Referral(s): Kaylee Carranza MD [STAFF PHYSICIAN] - 08/18/20 Patient Instructions/Handouts: *[facility] - (Anesthesia) Endoscopy Discharge Instructions, *Sur[facility] - (Anesthesia) Discharge Instructions Outpatient Surgery, Diverticulosis (GEN), Diverticulosis Diet (GEN), Colonoscopy (DC) Activity/Diet/Wound Care/Special Instructions: Repeat colonoscopy in 3 years, 2023 Discharge Disposition: HOME SELF-CARE
[2020-08-13 09:03] VITALS: BP 130/73; PULSE 65
== END 2020-08-13 09:19 | disposition home or self-care (01) ==
LOC: ORWHC2ENDO 07:23
PROVIDERS: ATTEND Surgery Plastic and Reconstructive Surgery
DX: Z12.11 Encounter for screening for malignant neoplasm of colon (principal); K57.30 Diverticulosis of large intestine without perforation or abscess without bleeding; K64.1 Second degree hemorrhoids; K64.0 First degree hemorrhoids; Z86.010 Personal history of colon polyps; Z80.0 Family history of malignant neoplasm of digestive organs; E78.5 Hyperlipidemia, unspecified; I10 Essential (primary) hypertension; I71.4 Abdominal aortic aneurysm, without rupture; M54.9 Dorsalgia, unspecified; Z90.49 Acquired absence of other specified parts of digestive tract; Z90.710 Acquired absence of both cervix and uterus; F17.210 Nicotine dependence, cigarettes, uncomplicated; Z98.890 Other specified postprocedural states; Z79.899 Other long term (current) drug therapy; Z88.8 Allergy status to other drugs, medicaments and biological substances
CPT/HCPCS: J2001; J2704; G0105

== ENCOUNTER → 2020-08-21 | Outpatient (CLI) | payer MEDICARE | END | disposition home or self-care (01) | LOC: RADCTMAIN 08-19 13:22 | PROVIDERS: ATTEND Surgery | DX: I71.4 Abdominal aortic aneurysm, without rupture (principal); I71.2 Thoracic aortic aneurysm, without rupture | CPT/HCPCS: 82565; 84520 ==

== ENCOUNTER → 2020-08-28 | Outpatient (CLI) | payer MEDICARE ==
--- NOTE | 2020-08-28 16:55 | CT ---
EXAMINATION TYPE: CT abdomen pelvis wo con DATE OF EXAM: 08/28/2020 COMPARISON: 07/21/2016 INDICATION: Follow up for abdominal aortic aneurysm. DLP: 502.6 mGycm, Automated exposure control for dose reduction was used. CONTRAST: 0 mL of Isovue 300. Study performed with Oral Contrast TECHNIQUE: Axial images were obtained from above the diaphragm to the pubic rami in the axial plane a t 5 mm thick sections. Reconstructed images are reviewed on the computer in the coronal plane. FINDINGS: Limited CT sections are obtained the lung bases. The lung bases are clear. The descending thoracic aorta on the initial image shows transverse dimension of 4.1 cm. This diminis hes to 3.1 cm at the diaphragm. CT ABDOMEN: Liver: Normal Spleen: Normal Pancreas: Normal Adrenal glands: The adrenal glands are normal. Gallbladder: Normal Kidneys: No masses are evident. No hydronephrosis is present. No cysts are present. Delayed images were obtained through the kidneys, which remain unremarkable. Aorta: r as the aorta passes through the diaphragmatic hiatus on this becomes aneurysmal expanding to 3.8 cm transverse. This has a maximum AP diameter within the mid abdominal aorta of 5.6 cm and termi nates at the bifurcation. Iliac vessels appear normal. Abdominal aortic aneurysm appears to involve t he left renal artery. Right renal artery takeoff is not clearly identified. Inferior vena cava: Normal. CT PELVIS: Loops of bowel within the abdomen and pelvis are normal. Note is made of multiple diverticuli within the sigmoid colon. Scattered diverticula are within the descending colon and a few diverticuli withi n the ascending colon. There are loops of bowel lacking oral contrast or with limited distention li miting their evaluation. Appendix: Normal as visualized. Urinary bladder: Decompressed limiting evaluation. Genitourinary structures: Uterus and ovaries are not identified. Osseous structures: No suspicious lytic or sclerotic lesions. IMPRESSIONS: 1. Descending thoracic aorta at the edge of the field of view. CT chest can be performed as clinical ly indicated follow-up of 07/21/2016. 2. Abdominal aortic aneurysm increasing from 2017. Currently this has a maximum AP dimension of 5.6 c m, compared to prior study of 3.8 cm. Abdominal aortic aneurysm likely involves the renal arteries an d terminates at the bifurcation. 3. Diverticulosis throughout the colon without acute diverticulitis.
== END | disposition home or self-care (01) ==
LOC: RADCTMAIN 13:26
PROVIDERS: ATTEND Family Medicine
DX: K57.90 Diverticulosis of intestine, part unspecified, without perforation or abscess without bleeding (principal); I71.4 Abdominal aortic aneurysm, without rupture; R94.39 Abnormal result of other cardiovascular function study
CPT/HCPCS: 74176; 82565; 84520

== ENCOUNTER → 2020-09-14 | Outpatient (CLI) | payer MEDICARE ==
--- NOTE | 2020-09-15 21:58 | CT ---
CT CHEST FOR PULMONARY EMBOLISM. EXAMINATION TYPE: CT angio chest DATE OF EXAM: 09/14/2020 INDICATION: thoracic aortic aneurysm CT DLP: 489 mGycm, Automated exposure control for dose reduction was used. CONTRAST: Patient injected with 80 mL of Isovue 370. COMPARISON: 04/05/2019 TECHNIQUE: CT of the chest is performed on a spiral scan at 2 mm thick sections. Study is performed with intravenous contrast timed for evaluation for the aorta. This will limit additional portions of the evaluation. 3-D MIP images reconstructed by the technologist are reviewed on the computer in the coronal and sagittal planes. FINDINGS: No persistent filling defects are evident to suggest an acute pulmonary embolism. No mediastinal or hilar adenopathy enlarged by CT criteria is evident. The ascending aorta diameter at the level of the main pulmonary artery is 3.4 cm. The main pulmonary artery diameter at the bifur cation is 2.9 cm. Minimal coronary artery calcifications not excluded. There is a 1.4 cm x 0.9 cm peripheral consolidation in the right upper lung field present previous an d is stable. Limited CT section through the upper abdomen are unremarkable. Aorta: Aortic root is estimated measured 3.1 cm. The aorta at the main pulmonary artery is 3.4 cm. Th e aorta at the aortic arch is 2.8 cm. The aorta within the mid descending portion is 2.8 cm. This jus t superior to some fusiform prominence of the descending thoracic aorta with a transverse dimension o f 4.1 cm. At the level of the diaphragm the aorta is estimated to measure 4.5 cm transverse. This tracy rows at the diaphragm to the renal arteries. Just below the renal arteries there is abdominal aortic aneurysm with AP diameter of 5.2 cm. This extends out of the field of view which on the CT of 08/29/19 21 is reported up to 5.6 cm. IMPRESSIONS: 1. Distal descending thoracic aortic aneurysm of 4.1 cm. This narrows at the diaphragm with an additi onal aneurysm below the renal arteries of 5.2 cm extending out of the [id number]. The abdominal ao rtic aneurysm is increase in size over the interval but only partially visualized. 2. Stable pleural-based infiltrate.
== END | disposition home or self-care (01) ==
LOC: RADCTMAIN 14:49
PROVIDERS: ATTEND Surgery
DX: I71.2 Thoracic aortic aneurysm, without rupture (principal); I71.4 Abdominal aortic aneurysm, without rupture; R91.8 Other nonspecific abnormal finding of lung field
CPT/HCPCS: 82565; 71275; 36415; Q9967

== ENCOUNTER → 2020-09-14 | Outpatient (CLI) | payer MEDICARE ==
[~2020-09-14] MED LIST changes: -LACTATED RINGERS 1,000 ML IV SCH; -LIDOCAINE 1% (10MG/ML) FOR IV START INTRADERMA PRN; +SODIUM CHLORIDE 0.9% 1,000 ML IV SCH
[2020-09-14 13:37] VITALS: BP 136/75; PULSE 88; RESP 16; TEMP 97.8
[2020-09-14 14:56] LABS: Blood Urea Nitrogen 16 mg/dL (7-17); Creatine Kinase 47 U/L (30-135)
== END | disposition home or self-care (01) ==
LOC: PROCWHC3 13:20
PROVIDERS: ATTEND Surgery
DX: I71.4 Abdominal aortic aneurysm, without rupture (principal); I71.2 Thoracic aortic aneurysm, without rupture
CPT/HCPCS: 36415; 82550; 84520; 96360

== ENCOUNTER → 2021-03-16 | Outpatient (CLI) | payer MEDICARE ==
--- NOTE | 2021-03-16 14:52 | CT ---
EXAMINATION TYPE: CT angio abdomen pelvis DATE OF EXAM: 03/16/2021 COMPARISON: 08/28/2020 HISTORY: Aortic abdominal aneursym. CT DLP: 1575 mGycm Automated exposure control for dose reduction was used. CONTRAST: Performed without and with IV Contrast, patient injected with 80ml mL of Isovue 370. FINDINGS: Aorta: Descending thoracic aorta appears to be dilated measuring a maximal dimension of 4.4 cm compat ible with aneurysmal dilation. There is aneurysmal dilation of the abdominal aorta originating at the level of the lowest renal josephine ry extending to the aortic bifurcation with a maximal transverse dimension 5.6 cm and maximal AP dime nsion of 5.6 cm. Atherosclerotic changes are seen with both soft and calcified plaque. There is ather osclerotic change of normal caliber of the iliac arteries. No evidence of dissection. Abdomen and pelvis: Bowel gas pattern nonspecific with changes of diverticulosis. Intrahepatic biliary ductal dilation po st cholecystectomy noted and there are stable multiple hepatic lesions. There appears to be marked ca rdiomegaly. Paraseptal emphysematous changes noted. Celiac artery and SMA appear to be patent. Bilateral renal arteries appear to enhance. Diminutive MALIA noted. Adrenal glands have a normal morphology. No hydronephrosis. Mild dilation pancreatic duct stable rela tive to prior exam. Calcified nodule in the posterior right gluteal region compatible with granuloma. Hypertrophic and degenerative changes of the spine. No free fluid. Arthropathy of the hips. 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 IMPRESSION: 1. There is a abdominal aortic aneurysm originating approximately 0.5 to 1 cm below the level of the lowest renal artery extending to the aortic bifurcation stable in size measuring a maximal dimension of 5.6 cm. 2. There is aneurysmal dilation of the descending thoracic aorta measuring 4.4 cm and previously leilani uring 4.1 cm. Correlate clinically.
== END | disposition home or self-care (01) ==
LOC: RADCTMAIN 10:44
PROVIDERS: ATTEND Surgery
DX: I71.4 Abdominal aortic aneurysm, without rupture (principal)
CPT/HCPCS: 74174; Q9967

== ENCOUNTER → 2021-03-16 | Outpatient (CLI) | payer MEDICARE ==
[~2021-03-16] MED LIST changes: +SODIUM CHLORIDE 0.9% 1,000 ML IV ONE; -SODIUM CHLORIDE 0.9% 1,000 ML IV SCH; +SODIUM CHLORIDE 0.9% 500 ML 500 ML in EMPTY BAG 1 BAG IV PRN
[2021-03-16 11:12] VITALS: BP 152/80; PULSE 85; RESP 16; TEMP 98.2
== END ==
LOC: PROCWHC3 11:01
PROVIDERS: ATTEND Surgery
DX: I71.4 Abdominal aortic aneurysm, without rupture (principal)
CPT/HCPCS: 36415; 82565; 84520; 96360

== ENCOUNTER → 2021-06-02 | Outpatient (CLI) | payer MEDICARE ==
--- NOTE | 2021-06-03 10:02 | XR ---
EXAMINATION TYPE: XR chest 2V DATE OF EXAM: 06/02/2021 COMPARISON: Chest x-ray 08/24/2018, CT angiogram 03/16/2021 HISTORY: Chest pain, history of aneurysm TECHNIQUE: Frontal and lateral views of the chest are obtained. FINDINGS: There is no focal air space opacity, pleural effusion, or pneumothorax seen. The cardiac silhouette size is stable. Prominent lung volumes suggest underlying COPD. The aorta is dense and ane urysmal. Biapical pleural thickening is present. The osseous structures are intact. IMPRESSION: No acute cardiopulmonary process. Aortic aneurysm. Emphysema. Cardiomegaly.
== END | disposition home or self-care (01) ==
LOC: LABWHC1 15:34
PROVIDERS: ATTEND Nurse Practitioner Family
DX: R07.9 Chest pain, unspecified (principal)
CPT/HCPCS: 36415; 71046; 93005

== ENCOUNTER 2021-07-20 09:29 | Inpatient (IN) | payer MEDICARE ==
[2021-07-16 13:59] VITALS: BMI 25.4
[~2021-07-20 09:29] MED LIST changes: +ALPRAZolam 0.25 MG TAB PO PRN; +ALPRAZolam 0.5 MG TAB PO PRN; -SODIUM CHLORIDE 0.9% 1,000 ML IV ONE; +SODIUM CHLORIDE 0.9% 1,000 ML in EMPTY BAG 1 BAG IV ONE; -SODIUM CHLORIDE 0.9% 500 ML 500 ML in EMPTY BAG 1 BAG IV PRN; +ZOLPIDEM 5 MG TAB PO PRN; +ceFAZolin 1 GM in SODIUM CHLORIDE 0.9% 250 ML IRRIGATION PRN; +ceFAZolin 1 GM in SODIUM CHLORIDE 0.9% IRRIG BTL 250 ML IRRIGATION PRN
[2021-07-20 10:38] LABS: Basophils # (A) 0.1 k/uL (0-0.2); Basophils % (A) 1 %; Eosinophils # (A) 0.2 k/uL (0-0.7); Eosinophils % (A) 3 %; Lymphocytes # (A) 1.7 k/uL (1.0-4.8); Lymphocytes % (A) 27 %; MCH 28.7 pg (25.0-35.0); MCHC 32.5 g/dL (31.0-37.0); MCV 88.5 fL (80.0-100.0); Mean Platelet Volume 7.8; Monocytes # (A) 0.4 k/uL (0-1.0); Monocytes % (A) 7 %; Neutrophils % (A) 61 %; Platelet Count 214 k/uL (150-450); RBC 4.17 m/uL (3.80-5.40); RDW 13.3 % (11.5-15.5); WBC 6.5 k/uL (3.8-10.6)
[2021-07-20 10:59] LABS: Calcium 9.2 mg/dL (8.4-10.2); Potassium 4.1 mmol/L (3.5-5.1)
[2021-07-20] MEDS ORDERED: HEPARIN SODIUM,PORCINE 10,000 UNIT/ML 1 ML VIAL ONE (11:50)
[2021-07-20] MEDS ORDERED: GLYCOPYRROLATE 0.2 MG/ML 2 ML VIAL ONE (11:50)
[2021-07-20] MEDS ORDERED: NEOSTIGMINE 1 MG/ML 10 ML VIAL ONE (11:50)
[2021-07-20] MEDS ORDERED: PROTAMINE SULFATE 10 MG/ML 5 ML VIAL IV ONE (11:50)
[2021-07-20] MEDS ORDERED: LIDOCAINE 2% INJ 20 MG/ML (2 ML VIAL) ONE (11:50)
[2021-07-20] MEDS ORDERED: fentaNYL (PF) 50 MCG/ML 2 ML AMP ONE (11:50)
[2021-07-20] MEDS ORDERED: hydrALAZINE HCL 20 MG/ML 1 ML VIAL ONE (11:50)
[2021-07-20] MEDS ORDERED: ROCURONIUM 10 MG/ML (5 ML VIAL) IV ONE (11:50)
[2021-07-20] MEDS ORDERED: SUCCINYLCHOLINE CHLORIDE 100 MG/5 ML SYR IV ONE (11:50)
[2021-07-20] MEDS ORDERED: DEXAMETHASONE SOD PHOSPHATE 4 MG/ML 1 ML VIAL ONE (11:50)
[2021-07-20] MEDS ORDERED: PHENYLEPHRINE-0.9% NACL SYG 1,000 MCG/10 ML SYRINGE ONE (11:50)
[2021-07-20] MEDS ORDERED: MIDAZOLAM 2 MG/2 ML VIAL ONE (11:50)
[2021-07-20] MEDS ORDERED: ONDANSETRON 4 MG/2 ML VIAL ONE (11:50)
[2021-07-20] MEDS ORDERED: PROPOFOL 10 MG/ML 20 ML VIAL IV ONE (11:50)
[2021-07-20] MEDS ORDERED: IOPAMIDOL-250 100ML BTL INTRAARTER ONE ×4 (14:11)
[2021-07-20] MEDS ORDERED: NALOXONE 0.4 MG/ML 1 ML VIAL IVP PRN (14:54)
[2021-07-20] MEDS ORDERED: fentaNYL (PF) 50 MCG/ML 2 ML AMP IVP ONE ×2 (15:06→15:48)
--- NOTE | 2021-07-20 15:24 | IR ---
Fluoroscopy HISTORY: Abdominal aortic aneurysm 46.2 minutes fluoroscopy time supplied to the referring clinician. 921 intraoperative C-arm images d ocument the procedure. See dictated report from vascular surgery.
[2021-07-20 16:14] LABS: Glucose,Whole Blood 154 mg/dL (75-99)
[2021-07-20] MEDS ORDERED: HYDROmorphone 0.5 MG/0.5 ML SYRINGE IVP ONE (16:14)
[2021-07-20] MEDS: MORPHINE SULFATE 2 MG/ML SYRINGE IVP PRN (17:48)
[2021-07-20] MEDS: Acetaminophen-Codeine 300-30mg TAB PO SCH (20:15)
[2021-07-20] MEDS ORDERED: amLODIPine 5 MG TAB PO SCH (21:00)
[2021-07-20] MEDS ORDERED: polyethylene glycoL 3350 17 GM POWD.PACK PO SCH (21:00)
[2021-07-20] MEDS ORDERED: ATORVASTATIN 10 MG TAB PO SCH (21:00)
[2021-07-21] MEDS: Acetaminophen-Codeine 300-30mg TAB PO SCH ×2 (01:26→08:38)
[2021-07-21] MEDS: MORPHINE SULFATE 2 MG/ML SYRINGE IVP PRN (05:04)
[2021-07-21 08:00] LABS: Basophils % (A) 0 %; Eosinophils % (A) 0 %; HCT 32.5 % (34.0-46.0); HGB 10.2 gm/dL (11.4-16.0); Lymphocytes # (A) 1.2 k/uL (1.0-4.8); Lymphocytes % (A) 12 %; MCH 28.6 pg (25.0-35.0); MCHC 31.4 g/dL (31.0-37.0); MCV 91.1 fL (80.0-100.0); Mean Platelet Volume 7.6; Monocytes # (A) 0.7 k/uL (0-1.0); Monocytes % (A) 6 %; Neutrophils # (A) 8.5 k/uL (1.3-7.7); Neutrophils % (A) 81 %; Platelet Count 190 k/uL (150-450); RBC 3.57 m/uL (3.80-5.40); RDW 13.6 % (11.5-15.5); WBC 10.5 k/uL (3.8-10.6)
[2021-07-21 08:09] LABS: Calcium 8.6 mg/dL (8.4-10.2); Potassium 4.1 mmol/L (3.5-5.1)
[2021-07-21] MEDS ORDERED: ASPIRIN 81 MG PO SCH (09:00)
[2021-07-21] MEDS ORDERED: COLON HEALTH PO SCH (09:00)
[2021-07-21] MEDS ORDERED: LOSARTAN 50 MG TAB PO SCH (09:00)
[2021-07-21] MEDS ORDERED: NON FORMULARY DRUG (Omega-3/Dha/Epa/Fish Oil [Fish Oil 500 Mg Softgel] 1 EACH Capsule) PO SCH (09:00)
[2021-07-21] MEDS ORDERED: MULTIVITAMINS, THERA 1 EACH TAB PO SCH (09:00)
[2021-07-21] MEDS ORDERED: CYANOCOBALAMIN 500 MCG TAB PO SCH (09:00)
[2021-07-21] MEDS ORDERED: NON FORMULARY DRUG (Prevagen 1 TAB) PO SCH (09:00)
[2021-07-21] MEDS ORDERED: CLOPIDOGREL 75 MG TAB PO SCH (09:00)
--- NOTE | 2021-07-21 10:19 | P.CONS ---
History of Present Illness - Reason for Consult Consult date: 07/21/21 Medical management - Chief Complaint Repair of Abdominal aortic aneurysm - History of Present Illness Patient is a 75-year-old female with a known history of abdominal aortic aneurysm,, hypertension, hyperlipidemia, history of lung nodules was admitted to hospital for endovascular aortic aneurysm repair. Patient is postoperative day 1. Currently denied any complaints of abdominal pain. No nausea vomiting or abdominal pain or diarrhea. Denied any fever or chills. No cough or sputum production. Denied any leg swelling or tingling sensation. Laboratory data showed WBC 10.5 hemoglobin 10.2 and platelets 190 sodium 137 potassium 4.1 chloride 109 bicarb is 22, BUN 21 and creatinine 1.2 to Calcium 8.6 GFR 44. Review of Systems Constitutional: Patient denies any fever or chills . No generalized weakness or weight loss. Abdomen: Patient denied nausea vomiting and diarrhea and abdominal pain. Cardiovascular: Patient denies any chest pain or short of breath no palpitations. Respiratory: patient denied any cough is from production. No shortness of breath Neurologic: Patient denied any numbness or tingling headache. Musculoskeletal: Patient denies any complaints of joint swelling or deformity. Skin: Negative Psychiatric: Negative Endocrine: No heat or cold intolerance. No recent weight gain. Genitourinary: No dysuria or hematuria. All other 14 point ROS negative except the above Past Medical History Past Medical History: Atrial Fibrillation, Cancer, Hypertension, Memory Impai rment Additional Past Medical History / Comment(s): back pain, AAA , constipation, skin cancer on nose History of Any Multi-Drug Resistant Organisms: None Reported Past Surgical History: Appendectomy, Cholecystectomy, Hysterectomy Additional Past Surgical History / Comment(s): COLONOSCOPY, skin cancer removed from nose, Past Anesthesia/Blood Transfusion Reactions: No Reported Reaction Past Psychological History: No Psychological Hx Reported Additional Psychological History / Comment(s): poor historian, " a little memory problems" Smoking Status: Current every day smoker Past Alcohol Use History: Daily Additional Past Alcohol Use History / Comment(s): SMOKES < 1/2 PPD SINCE AGE 16. DRINK 2 BEERS AT NIGHT Past Drug Use History: None Reported - Past Family History Mother Family Medical History: Cancer, Deep Vein Thrombosis (DVT) Medications and Allergies Home Medications Medication Instructions Recorded Confirmed Type Losartan Potassium 100 mg PO QAM 04/22/15 07/20/21 History Multivitamins, Thera [Multivitamin 1 tab PO QAM 04/22/15 07/20/21 History (formulary)] Simvastatin [Zocor] 20 mg PO HS 04/22/15 07/20/21 History amLODIPine [Norvasc] 5 mg PO HS 04/22/15 07/16/21 History Acetaminophen-Codeine 300-30mg 1 tab PO TID 08/11/20 07/20/21 History [Tylenol w/codeine #3] Aspirin 81 mg PO DIRECTED 09/14/20 07/20/21 History [place]-3/Dha/Epa/Fish Oil [Fish Oil 1 tab PO DAILY 09/14/20 07/20/21 History 500 mg Softgel] Colon Health 1 tab PO DAILY 07/16/21 07/20/21 History Miralax(Dose Unknown) 1 applicate PO HS 07/16/21 07/20/21 History Prevagen 1 tab PO DAILY 07/16/21 07/20/21 History Vitamin B12(Dose Unknown) 1 tab PO DAILY 07/16/21 07/20/21 History Clopidogrel [Plavix] 75 mg PO DAILY #30 tab 07/21/21 Rx Allergies Allergy/AdvReac Type Severity Reaction Status Date / Time enalapril maleate Allergy facial Verified 07/16/21 13:39 [From Vasotec] edema enalaprilat dihydrate Allergy facial Verified 07/16/21 13:39 [From Vasotec] edema Physical Exam Vitals: Vital Signs Temp Pulse Pulse Resp BP BP Pulse Ox 07/21/21 04:00 98.2 F 75 18 132/70 95 07/21/21 02:00 70 82 18 07/20/21 23:22 70 18 133/64 94 L 07/20/21 20:00 98.4 F 86 82 18 93 L 07/20/21 18:40 97.1 F L 82 18 138/62 94 L 07/20/21 18:00 96 07/20/21 17:47 86 16 122/56 94 L 07/20/21 17:17 77 14 128/60 92 L 07/20/21 17:00 79 16 115/56 94 L 07/20/21 16:45 73 16 110/57 94 L 07/20/21 16:30 75 16 111/55 94 L 06/14/22 16:17 95 07/20/21 16:15 72 16 112/56 156/40 97 07/20/21 16:00 77 16 103/55 159/40 97 07/20/21 15:45 71 16 115/57 149/41 97 07/20/21 15:30 79 16 111/53 165/45 97 07/20/21 15:15 80 16 106/54 140/40 97 07/20/21 15:00 75 16 111/59 141/43 97 07/20/21 14:45 88 16 113/57 144/48 97 07/20/21 14:40 97.0 F L 82 16 110/72 145/46 98 07/20/21 10:33 99.1 F 66 16 142/74 139/72 95 Intake and Output 07/20/21 07/21/21 07/21/21 22:59 06:59 14:59 Intake Total 200 600 Output Total 175 750 Balance 25 -150 Intake: IV 200 Intake, IV Titration 120 Amount Sodium Chloride 0.9% 1, 120 000 ml In Empty Bag 1 bag @ 1 ML/KG/HR 58.967 mls/ hr IV .[id number] ONE Rx#: [id number] Oral 480 Output: Urine 175 750 Other: Voiding Method Indwelling Catheter Indwelling Catheter Weight 72.3 kg PHYSICAL EXAMINATION: Patient is lying in the bed comfortably, no acute distress, awake alert and oriented.. HEENT: Normocephalic. Neck is supple. Pupils reactive. Nostrils clear. Oral cavity is moist. Neck reveals no JVD, carotid bruits, or thyromegaly. CHEST EXAMINATION: Trachea is central. Symmetrical expansion. Lung [place] clear to auscultation and percussion. CARDIAC: Normal S1, S2 with no gallops. No murmurs ABDOMEN: Soft. Bowel sounds normal. No organomegaly. No abdominal bruits. Extremities: reveal no edema. No clubbing or cyanosis Neurologically awake, alert, oriented x3 with well-coordinated movements. No focal deficits noted Skin: No rash or skin lesions. Psychiatric: Coperative. Nonsuicidal Musculoskeletal: No joint swelling or deformity. Normal range of motion. Results CBC & Chem 7: 07/21/21 07:40 07/21/21 07:40 Labs: Abnormal Lab Results - Last 24 Hours (Table) 07/20/21 07/20/21 07/21/21 Range/Units 10:07 16:11 07:40 RBC 3.57 L (3.80-5.40) m/uL Hgb 10.2 L (11.4-16.0) gm/dL Hct 32.5 L (34.0-46.0) % Neutrophils # 8.5 H (1.3-7.7) k/uL Chloride (98-107) mmol/L BUN 23 H (7-17) mg/dL Creatinine 1.48 H (0.52-1.04) mg/dL Glucose 120 H (74-99) mg/dL POC Glucose (mg/dL) 154 H (75-99) mg/dL 07/21/21 Range/Units 07:40 RBC (3.80-5.40) m/uL Hgb (11.4-16.0) gm/dL Hct (34.0-46.0) % Neutrophils # (1.3-7.7) k/uL Chloride 109 H (98-107) mmol/L BUN 21 H (7-17) mg/dL Creatinine 1.22 H (0.52-1.04) mg/dL Glucose (74-99) mg/dL POC Glucose (mg/dL) (75-99) mg/dL Assessment and Plan Assessment: Status post endovascular aortic aneurysm repair was tolerated a 1 Mild acute kidney injury likely prerenal improved with creatinine 1.2 today. Hypertension Chronic back pain History of skin cancer on nose Currently on day smoker and daily alcohol use DVT prophylaxis. Plan: Patient is status post surgery. No other acute overnight issues. Patient will be continued on aspirin Plavix and statins. Continue current blood pressure medications. Laboratory data reviewed. Patient is being discharged today. Discharge medication reconciliation was done and patient was recommended to follow with primary care physician.
[2021-07-21 12:13] VITALS: RESP 16
[2021-07-21 12:24] VITALS: BP 121/49; PULSE 72; TEMP 98.2
--- NOTE | 2021-07-21 13:14 | P.DS ---
Providers Date of admission: 07/20/21 09:29 Attending physician: Sam Bautista DO Consults: 07/20/21 07:47 Consult to Anesthesia Routine Consulting Provider: Anesthesia,Services Consult Reason/Comments: General anesthesia for Aortic Stent procedure 07/20/21 16:30 Consult Physician Routine Consulting Provider: Alverto Chinchilla Consult Reason/Comments: Medical Management Do you want consulting provider notified?: Yes Primary care physician: Alverto Chinchilla Hospital Course: This is a pleasant 75-year-old female with a past medical history including abdominal aortic aneurysm, chronic kidney disease, chronic back pain, occurring daily smoker, hyperlipidemia, hypertension, history of lung nodules who was scheduled for endovascular route aortic aneurysm repair. She is postop day #1 for endovascular aortic repair. Overall she is doing well. She states that she has some chills and is feeling cold however she has been afebrile. Vital signs are stable. WBC 10.5 hemoglobin 10.2 sodium 137 potassium 4.1 BUN 21 creatinine 1.2. She has been up and ambulating within the room. Allen catheter has been discontinued. Awaiting patient to void. She is denying any shortness of breath, chest pain, abdominal pain, nausea or vomiting. Procedure sites of bilateral groins clean dry and intact. Lungs clear to auscultation, heart rate regular rate and rhythm. Bilateral lower extremities with palpable DP pulses and warm to the touch. She will be discharged on Plavix, continue aspirin, Lipitor and all other home medications. The impression and plan of care has been dictated as directed. Dr. Allen I performed a history and examination of this patient, discussed the same with the dictator. I agree with the dictator's note ,documented as a scribe. Any additional findings or plans will be noted. Procedures: Endovascular abdominal aortic aneurysm repair with stent Patient Condition at Discharge: Stable Plan - Discharge Summary Discharge Rx Participant: Yes New Discharge Prescriptions: New Clopidogrel [Plavix] 75 mg PO DAILY #30 tab Continue Multivitamins, Thera [Multivitamin (formulary)] 1 tab PO QAM Simvastatin [Zocor] 20 mg PO HS Losartan Potassium 100 mg PO QAM amLODIPine [Norvasc] 5 mg PO HS Acetaminophen-Codeine 300-30mg [Tylenol w/codeine #3] 1 tab PO TID [place]-3/Dha/Epa/Fish Oil [Fish Oil 500 mg Softgel] 1 tab PO DAILY Vitamin B12(Dose Unknown) 1 tab PO DAILY Miralax(Dose Unknown) 1 applicate PO HS Aspirin 81 mg PO DIRECTED Colon Health 1 tab PO DAILY Prevagen 1 tab PO DAILY Discharge Medication List Losartan Potassium 100 mg PO QAM 04/22/15 [History] Multivitamins, Thera [Multivitamin (formulary)] 1 tab PO QAM 04/22/15 [History] Simvastatin [Zocor] 20 mg PO HS 04/22/15 [History] amLODIPine [Norvasc] 5 mg PO HS 04/22/15 [History] Acetaminophen-Codeine 300-30mg [Tylenol w/codeine #3] 1 tab PO TID 08/11/20 [History] Aspirin 81 mg PO DIRECTED 09/14/20 [History] [place]-3/Dha/Epa/Fish Oil [Fish Oil 500 mg Softgel] 1 tab PO DAILY 09/14/20 [History] Colon Health 1 tab PO DAILY 07/16/21 [History] Miralax(Dose Unknown) 1 applicate PO HS 07/16/21 [History] Prevagen 1 tab PO DAILY 07/16/21 [History] Vitamin B12(Dose Unknown) 1 tab PO DAILY 07/16/21 [History] Clopidogrel [Plavix] 75 mg PO DAILY #30 tab 07/21/21 [Rx] Follow up Appointment(s)/Referral(s): Alverto Chinchilla MD [Primary Care Provider] - 1 Week Sam Bautista DO [STAFF PHYSICIAN] - 2 Weeks Activity/Diet/Wound Care/Special Instructions: No heavy lifting greater than 5-10 pounds, no strenuous activity. No driving for 1-2 weeks. May shower starting tomorrow 07/22/2021. No tub bathing or hot tubs until cleared by vascular surgeon You will be starting a new medication called Plavix. Take 1 tablet daily. Discharge Disposition: HOME SELF-CARE
--- NOTE | 2021-07-25 13:50 | P.OP ---
Date of Procedure: 07/20/21 Preoperative Diagnosis: 5.6cm Infrarenal AAA Postoperative Diagnosis: Same Procedure(s) Performed: Percutaneous Endovascular Aortic Repair with [place] graft and Palmaz Stenting Percutaneous closure of bilateral femoral arteries Anesthesia: LILLY Surgeon: Sam Bautista Estimated Blood Loss (ml): 25 Pathology: none sent Condition: stable Disposition: PACU Indications for Procedure: 75 year old female with 5.6cm AAA, COPD, and history of tobacco use presents to the hospital for EVAR. We did discuss options including open repair but patient wanted endovascular minimally invasive approach and presents today for procedure. Description of Procedure: After written and informed consent was obtained and all risks, benefits and complications were discussed the patient was brought to the endovascular suite and laid in a supine position. Timeout was performed in usual fashion and patient was given antibiotics prior to access. The bilateral groins were prepped and draped in usual sterile fashion after appropriate anesthesia was performed per anesthesiology. Ultrasound was used to visualize the right and left common femoral arteries and access to the vessels was obtained under ultrasound guidance such that bright red pulsatile blood was expressed through the needle. A guidewire was inserted, incisions with an 11 blade scalpel were made over the wires, followed by dilation of the tracts with 6 [place]vor[place] access sheaths. Following dilation, 6 [place]vorian Perclose proglide devices were used to place sutures in the bilateral common femoral arteries which were held in place using hemostats. An 8 [place] sheath was then inserted into the right common femoral artery and a 10 [place] sheath was inserted in the left. Patient was administered heparin and followed with ACTs and re-dosing as needed for ACT >200. A 035 Guidewire was inserted into the right sided sheath and advanced into the thoracic aorta using a 100cm 5 gu[place]ian glidecath. A second guidewire was inserted into the left side sheath followed by a 100cm pigtail catheter. Angiogram was performed to measure vessel lengths and characterize the anatomy and its topography. A 34mm [place] aortic body was then loaded over the right sided guidewire after removal of the 10 gu[place]ian sheath. The delivery system was inserted into the vasculature and advanced until the implant radiopaque markers were approximately 1 cm proximal to the intended landing site. Orientation of the aortic body to the desired position for appropriate access to the contralateral aortic body limb was obtained by angiogram. The first segment of the proximal stent was deployed in usual fashion and balloon was inflated to open the main body crown and orientation was performed with fluoroscopy. The pigtail catheter was withdrawn once measurements obtained for proximal landing zone just below the renal arteries. The remainder of the proximal stent was then deployed in usual fashion. The aortic body guidewire until the stiff the floppy transition was within the aortic body ipsilateral leg. Radiopaque polymer was then injected under direct visualization of fluoroscopy. Contralateral limb access was then obtained using the integrated crossover lumen in the aortic body delivery system and snare catheter to facilitate placement of 0.14 command wire. A 5fr lew catheter into the contralateral side and leslee wired an 014 wire into the graft and descending thoracic aorta. A retrograde angiogram was obtained to confirm contralateral limb length. We maintained guidewire position to remove the angiographic catheter and introducer sheath from the contralateral access site. A [id number] iliac limb delivery system over the contralateral sided guidewire was placed and deployed in normal fashion. The deployment sheath was removed by maintaining position of the sheath and retracted the catheter handle to receive the nose cone and the end of the delivery system outer sheath. Aortic body guidewire was repositioned into the aorta and the proximal sealing ring was ballooned. The main body deployment catheter was removed in usual fashion and pigtail catheter was placed in the ipsilateral limb and retrograde angiogram was performed for length measurements. A [id number] iliac limb was chosen and delivered in usual fashion. Two 12 x 40 mm balloons were placed bilaterally to perform additional angioplasty of the stent graft. Balloons were removed and pigtail catheter was placed and angiogram was obtained demonstrating a type I endoleak. Another balloon angioplasty of the ring with a Coda balloon and angiogram demonstrated a persistent leak and therefore a 14F sheath was placed after removal of the right femoral sheath and a Palmaz stent was placed across the aortic sealing ring. A final angiogram demonstrated exclusion of the aortic aneurysm without evidence of endoleak. The vascular access sites were closed using the sutures of the previously performed Perclose device after removal of guidewires, catheters and sheath. Hemostasis was achieved. The patient tolerated the procedure well and had palpable pulses. Dressings were placed and patient was sent to PACU for recovery.
== END 2021-07-21 15:33 | disposition home or self-care (01) | DRG 269 ==
LOC: 2ORMAIN 09:29 → 3SCARD 17:37
PROVIDERS: ADMIT Surgery; ATTEND Surgery
PROC: 04V03DZ Restriction of Abdominal Aorta with Intraluminal Device, Percutaneous Approach (ICD-10-PCS; principal; 2021-07-20 11:30)
DX: I71.4 Abdominal aortic aneurysm, without rupture (principal); F17.210 Nicotine dependence, cigarettes, uncomplicated; E78.5 Hyperlipidemia, unspecified; G89.29 Other chronic pain; M41.9 Scoliosis, unspecified; I12.9 Hypertensive chronic kidney disease with stage 1 through stage 4 chronic kidney disease, or unspecified chronic kidney disease; R91.1 Solitary pulmonary nodule; K63.5 Polyp of colon; I48.91 Unspecified atrial fibrillation; J44.9 Chronic obstructive pulmonary disease, unspecified; N18.9 Chronic kidney disease, unspecified; Z79.02 Long term (current) use of antithrombotics/antiplatelets; Z85.828 Personal history of other malignant neoplasm of skin; Z86.79 Personal history of other diseases of the circulatory system; Z90.710 Acquired absence of both cervix and uterus; Z90.49 Acquired absence of other specified parts of digestive tract; Z98.890 Other specified postprocedural states; Z88.0 Allergy status to penicillin; Z79.891 Long term (current) use of opiate analgesic; Z79.899 Other long term (current) drug therapy; Z83.2 Family history of diseases of the blood and blood-forming organs and certain disorders involving the immune mechanism
CPT/HCPCS: 34701; 80048; 85025; 86850; 86900; 86901

== ENCOUNTER 2021-07-22 23:24 | Emergency (ER) | payer MEDICARE ==
[2021-07-23 00:50] LABS: Basophils % (A) 0 %; Eosinophils # (A) 0.1 k/uL (0-0.7); Eosinophils % (A) 1 %; HCT 30.4 % (34.0-46.0); HGB 9.9 gm/dL (11.4-16.0); Lymphocytes # (A) 1.4 k/uL (1.0-4.8); Lymphocytes % (A) 13 %; MCH 28.8 pg (25.0-35.0); MCHC 32.5 g/dL (31.0-37.0); MCV 88.5 fL (80.0-100.0); Mean Platelet Volume 7.7; Monocytes # (A) 0.9 k/uL (0-1.0); Monocytes % (A) 9 %; Neutrophils % (A) 75 %; Platelet Count 179 k/uL (150-450); RBC 3.43 m/uL (3.80-5.40); RDW 13.3 % (11.5-15.5); WBC 10.7 k/uL (3.8-10.6)
[2021-07-23 01:14] LABS: INR 0.9 (<1.2); Partial Thromboplastin Time 20.9 sec (22.0-30.0); Prothrombin Time 10.4 sec (9.0-12.0)
[2021-07-23 01:17] LABS: Albumin 3.4 g/dL (3.5-5.0); Calcium 8.4 mg/dL (8.4-10.2); Potassium 3.5 mmol/L (3.5-5.1); Total Bilirubin 0.4 mg/dL (0.2-1.3); Total Protein 6.3 g/dL (6.3-8.2)
[2021-07-23] MEDS ORDERED: Acetaminophen-Codeine 300-30mg TAB PO STA ×3 (02:00→04:20)
[2021-07-23] MEDS ORDERED: SODIUM CHLORIDE 0.9% 500 ML BAG ONE (02:30)
[2021-07-23] MEDS ORDERED: Acetaminophen-Codeine 300-30mg TAB ONE (02:30)
--- NOTE | 2021-07-23 02:39 | XR ---
EXAM: XR Chest, 2 Views CLINICAL HISTORY: ITS.REASON XR Reason: GERBER TECHNIQUE: Frontal and lateral views of the chest. COMPARISON: 06/02/2021 FINDINGS: Lungs: No focal consolidation. The pulmonary vasculature demonstrates no significant radiographic abnormality. Pleural space: Unremarkable. No pneumothorax. No large pleural effusion. Heart: The cardiac silhouette is stable in appearance. Mediastinum: No significant alteration. The aortic contours are stable without appreciable alteration in size. The trachea is midline. Bones/joints: Unremarkable. Vasculature: A presumed aortic stent graft is noted in the region of the suprarenal abdominal aorta. IMPRESSION: No acute cardiopulmonary process or significant alteration from the previous examination. Incidental interval placement of a presumed abdominal aortic stent graft.
--- NOTE | 2021-07-23 06:13 | CT ---
EXAM: CT Angiography Chest With Intravenous Contrast CLINICAL HISTORY: ITS.REASON CT Reason: ELEVATED D DIMER TECHNIQUE: Axial computed tomographic angiography images of the chest with intravenous contrast. CTDI is 12.63 mGy and DLP is 497.4 mGy-cm. This CT exam was performed using one or more of the following dose reduction techniques: automated exposure control, adjustment of the mA and/or kV according to patient size, and/or use of iterative reconstruction technique. MIP reconstructed images were created and reviewed. COMPARISON: Patient is made with CT angio abdomen and pelvis dated 03/16/2021 FINDINGS: Pulmonary arteries: Unremarkable. No pulmonary embolism. Aorta: No acute findings. No thoracic aortic aneurysm. Lungs: Mild centrilobular emphysema in the bilateral apices. Mild dependent atelectasis. No mass. No consolidation. Pleural space: Unremarkable. No significant effusion. No pneumothorax. Heart: Unremarkable. No cardiomegaly. Small pericardial effusion. No evidence of RV dysfunction. Bones/joints: No acute fracture. No dislocation. Soft tissues: Unremarkable. Lymph nodes: Unremarkable. No enlarged lymph nodes. IMPRESSION: 1. No acute pulmonary embolism. 2. Unchanged descending thoracic aortic aneurysm measuring up to 4.6 cm.
--- NOTE | 2021-07-23 06:17 | CT ---
EXAM: CT Abdomen and Pelvis With Intravenous Contrast CLINICAL HISTORY: ITS.REASON CT Reason: PAIN TECHNIQUE: Axial computed tomography images of the abdomen and pelvis with intravenous contrast. CTDI is 12.6 mGy and DLP is 497.4 mGy-cm. This CT exam was performed using one or more of the following dose reduction techniques: automated exposure control, adjustment of the mA and/or kV according to patient size, and/or use of iterative reconstruction technique. COMPARISON: 03/16/2021. FINDINGS: Lung bases: Unremarkable. No mass. No consolidation. ABDOMEN: Liver: Unremarkable. No mass. Gallbladder and bile ducts: Surgically absent. Unchanged intrahepatic and extra hepatic biliary ductal dilation with common bile duct measuring up to 15 mm. Pancreas: Unremarkable. No mass. No ductal dilation. Spleen: Unremarkable. No splenomegaly. Adrenals: Unremarkable. No mass. Kidneys and ureters: Unremarkable. No solid mass. No hydronephrosis. Stomach and bowel: Large inspissated stool burden throughout the colon. No obstruction. No mucosal thickening. PELVIS: Appendix: No findings to suggest acute appendicitis. Bladder: Unremarkable. No mass. Reproductive: Unremarkable as visualized. ABDOMEN and PELVIS: Intraperitoneal space: Unremarkable. No free air. No significant fluid collection. Bones/joints: No acute fracture. No dislocation. Soft tissues: Unremarkable. Vasculature: Interval placement of abdominal aortic endograft with excluded aneurysm sac measuring up to 5.7 x 5.7 cm, unchanged from 03/16/2021. Mild periaortic stranding and nondependent air within the excluded aneurysm sac. Lymph nodes: Unremarkable. No enlarged lymph nodes. IMPRESSION: Interval placement of abdominal aortic endograft with excluded aneurysm sac measuring up to 5.7 x 5.7 cm, unchanged from 03/16/2021. Mild periaortic stranding and nondependent air within the excluded aneurysm sac suspicious for infection. <MYCVCSECTION> Communications: 07/23/21 06:29 Call Doctor Regarding Other, called Dr. Mtz on 07/23 06: 28 (-04:00)
--- NOTE | 2021-07-23 06:34 | ED ---
Chest Pain HPI - General Stated Complaint: Chest Pain - Related Data Home Medications Medication Instructions Recorded Confirmed Losartan Potassium 100 mg PO QAM 04/22/15 07/20/21 Multivitamins, Thera [Multivitamin 1 tab PO QAM 04/22/15 07/20/21 (formulary)] Simvastatin [Zocor] 20 mg PO HS 04/22/15 07/20/21 amLODIPine [Norvasc] 5 mg PO HS 04/22/15 07/16/21 Acetaminophen-Codeine 300-30mg 1 tab PO TID 08/11/20 07/20/21 [Tylenol w/codeine #3] Aspirin 81 mg PO DIRECTED 09/14/20 07/20/21 [place]-3/Dha/Epa/Fish Oil [Fish Oil 1 tab PO DAILY 09/14/20 07/20/21 500 mg Softgel] Colon Health 1 tab PO DAILY 07/16/21 07/20/21 Miralax(Dose Unknown) 1 applicate PO HS 07/16/21 07/20/21 Prevagen 1 tab PO DAILY 07/16/21 07/20/21 Vitamin B12(Dose Unknown) 1 tab PO DAILY 07/16/21 07/20/21 Previous Rx's Medication Instructions Recorded Clopidogrel [Plavix] 75 mg PO DAILY #30 tab 07/21/21 Allergies Allergy/AdvReac Type Severity Reaction Status Date / Time enalapril maleate Allergy facial Verified 07/23/21 02:05 [From Vasotec] edema enalaprilat dihydrate Allergy facial Verified 07/23/21 02:05 [From Vasotec] edema Review of Systems ROS Statement: Those systems with pertinent positive or pertinent negative responses have been documented in the HPI. ROS Other: All systems not noted in ROS Statement are negative. Past Medical History Past Medical History: Atrial Fibrillation, Cancer, Hypertension, Memory Impairment Additional Past Medical History / Comment(s): back pain, AAA , constipation, skin cancer on nose History of Any Multi-Drug Resistant Organisms: None Reported Past Surgical History: Appendectomy, Cholecystectomy, Hysterectomy Additional Past Surgical History / Comment(s): COLONOSCOPY, skin cancer removed from nose, Past Anesthesia/Blood Transfusion Reactions: No Reported Reaction Past Psychological History: No Psychological Hx Reported Additional Psychological History / Comment(s): poor historian, " a little memory problems" Smoking Status: Current every day smoker Past Alcohol Use History: Daily Additional Past Alcohol Use History / Comment(s): SMOKES < 1/2 PPD SINCE AGE 16. DRINK 2 BEERS AT NIGHT Past Drug Use History: None Reported - Past Family History Mother Family Medical History: Cancer, Deep Vein Thrombosis (DVT) Chest Pain MDM - MDM This encounter is a downtime encounter Disposition Clinical Impression: Chest pain Disposition: HOME SELF-CARE Condition: Fair Instructions (If sedation given, give patient instructions): Chest Pain (ED) Is patient prescribed a controlled substance at d/c from ED?: No Referrals: Alverto Chinchilla MD [Primary Care Provider] - 1-2 days Sam Bautista DO [STAFF PHYSICIAN] - 1-2 days
== END 2021-07-23 06:50 | disposition home or self-care (01) ==
LOC: EC 23:24
DX: R07.9 Chest pain, unspecified (principal); I10 Essential (primary) hypertension; F17.200 Nicotine dependence, unspecified, uncomplicated; I48.91 Unspecified atrial fibrillation; Z79.899 Other long term (current) drug therapy; Z79.82 Long term (current) use of aspirin; Z88.8 Allergy status to other drugs, medicaments and biological substances
CPT/HCPCS: 93005; 85379; 36415; 80053; 82150; 83690; 84484; 85025; 85610; 85730; 71046; 71275; 74177; 99285; Q9967

== ENCOUNTER → 2021-07-26 | Outpatient (CLI) | payer MEDICARE ==
--- NOTE | 2021-07-26 15:41 | XR ---
No sacral spine HISTORY: Degenerative disc disease, M 51.36 5 views lumbosacral spine Correlation to prior exam 03/04/2015 There is a levoscoliosis centered at approximately L4. Aortic stent graft is in place. Surgical clips present right upper quadrant. There is overlying artifact. Lumbar vertebral bodies show preserved height is no evident spondylolysis, minimal mitral listhesis g rade 1 L4-5. Loss of disc height is greatest at L4-5 with associated vacuum phenomenon. There is mult ilevel spondylosis. Lumbar vertebral bodies show sclerosis in the posterior elements of the lower spi ne consistent with facet arthropathy. Loss of disc height also present L5-S1 and L3-4. IMPRESSION: Degenerative disc disease and facet arthropathy, postprocedural changes.
== END | disposition home or self-care (01) ==
LOC: RADXRMAIN 14:36
PROVIDERS: ATTEND Family Medicine
DX: M47.896 Other spondylosis, lumbar region (principal); M51.36 Other intervertebral disc degeneration, lumbar region
CPT/HCPCS: 72110

== ENCOUNTER → 2021-09-08 | Outpatient (CLI) | payer MEDICARE ==
--- NOTE | 2021-09-09 04:33 | MR ---
EXAMINATION TYPE: MR lumbar spine wo con DATE OF EXAM: 09/08/2021 COMPARISON: None HISTORY: Low back pain that radiates down both legs. Multiplanar multiecho imaging of the lumbar spine without contrast. The lumbar vertebrae have normal alignment. There is disc space narrowing at L4-5. There is posterior disc bulging at L3-4 and L4-5. There is sacral cysts at S1 and S2 level. No evidence of focal bone d estruction. There is lateral recess stenosis due to facet arthropathy at L4-5. There is abdominal aor tic aneurysm with endograft. Aneurysm measures 5.6 cm. There is right-sided L2-3 and L3-4 neural foraminal impingement due to facet arthropathy and disc spa ce narrowing. IMPRESSION: There are mild posterior disc herniations at L3-4 and L4-5. L3-4 disc herniation appears new compared to old exam. L4-5 disc herniation not significantly different. There is L4-5 mild lateral recess zay nosis not significantly different. There is anterior L4-5 disc herniation without much change.
== END | disposition home or self-care (01) ==
LOC: RADMRIMAIN 16:22
PROVIDERS: ATTEND Family Medicine
DX: M51.36 Other intervertebral disc degeneration, lumbar region (principal); M51.26 Other intervertebral disc displacement, lumbar region
CPT/HCPCS: 72148